=== PATIENT | female | born 1950 | race Hispanic/Latino ===

== ENCOUNTER → 2018-10-02 11:24 | Outpatient (CLI) | payer MEDICARE, MEDICAID, SELFPAY ==
--- NOTE | 2018-10-02 | DI.RAD.S_ITS ---
PROCEDURE: XR CHEST 2V INDICATIONS: Cough>10days, bibasilar cackles TECHNIQUE: 2 views of the chest were acquired. COMPARISON: None. FINDINGS: Surgical changes and devices: None. Lungs and pleura: No pleural effusions or pneumothorax. Lungs are clear. Mediastinum: Mediastinal contours are normal. Heart size is normal. Bones and chest wall: No suspicious bony abnormalities. Soft tissues appear unremarkable. IMPRESSION: Mildly reduced inspiratory volume, otherwise normal for age, source of current symptoms is not seen. Dictated by: Hiram Duran M.D. on 10/02/2018 at 13:35 Approved by: Hiram Duran M.D. on 10/02/2018 at 13:36
== END ==
PROVIDERS: PCP Nurse Practitioner Family; Visit Provider Nurse Practitioner Family
DX: R05 Cough (principal); R09.89 Other specified symptoms and signs involving the circulatory and respiratory systems
CPT/HCPCS: 71046

== ENCOUNTER → 2018-10-19 11:48 | Outpatient (CLI) | payer MEDICARE, MEDICAID, SELFPAY ==
--- NOTE | 2018-10-19 | DI.RAD.S_ITS ---
PROCEDURE: XR CHEST 2V INDICATIONS: PERSISTANT COUGH TECHNIQUE: 2 views of the chest were acquired. COMPARISON: [facility], CR, XR CHEST 2V, 10/02/2018, 11:29. FINDINGS: Surgical changes and devices: None. Lungs and pleura: No pleural effusions or pneumothorax. Lungs are clear considering reduced inspiratory volume. Mediastinum: Mediastinal contours are normal. Heart size is normal. Bones and chest wall: No suspicious bony abnormalities. Soft tissues appear unremarkable. IMPRESSION: Mildly reduced inspiratory volume, heart size at the upper limits of normal when this is taken into account. Dictated by: Hiram Duran M.D. on 10/19/2018 at 12:51 Approved by: Hiram Duran M.D. on 10/19/2018 at 12:52
== END ==
PROVIDERS: PCP Nurse Practitioner Family; Visit Provider Nurse Practitioner Family
DX: R05 Cough (principal)
CPT/HCPCS: 71046

== ENCOUNTER → 2018-12-15 12:11 | Outpatient (CLI) | payer MEDICARE, MEDICAID, SELFPAY ==
--- NOTE | 2018-12-15 | DI.US.S_ITS ---
PROCEDURE: US CAROTID DOPPLER BI INDICATIONS: DECREASED CAROTID PULSE TECHNIQUE: Color and pulse Doppler interrogation was performed of both carotid systems, with image documentation and velocity measurements. COMPARISON: None. FINDINGS: Stenosis calculations are based on SRU (Society of Radiologists in Ultrasound) criteria. Right side: Brachial blood pressure: 133/78 mm Hg. Common carotid artery peak systolic velocity: 32 cm/sec. Internal carotid artery peak systolic velocity: 46 cm/sec. Internal carotid artery end diastolic velocity: 19 cm/sec. External carotid artery peak systolic velocity: 149 cm/sec. ICA/CCA peak systolic ratio: 1.4. Denson scale imaging description: Mild scattered plaque. Percent internal carotid artery stenosis: Less than 50%. Vertebral artery: Not visualized. Left side: Brachial blood pressure: 122/73 mm Hg. Common carotid artery peak systolic velocity: 55 cm/sec. Internal carotid artery peak systolic velocity: 49 cm/sec. Internal carotid artery end diastolic velocity: 19 cm/sec. External carotid artery peak systolic velocity: 125 cm/sec. ICA/CCA peak systolic ratio: 0.9. Denson scale imaging description: Mild scattered plaque. Percent internal carotid artery stenosis: Less than 50%. Vertebral artery: Flow direction is antegrade. IMPRESSION: Stable less than 50% bilateral internal carotid artery stenosis. Dictated by: Abebe Atwood [facility] Interpreted: Quincy Mcdonald MD on 12/15/2018 at 14:29 Approved by: Quincy Mcdonald M.D. on 12/15/2018 at 17:17
== END ==
PROVIDERS: PCP Nurse Practitioner Family; Visit Provider Nurse Practitioner Family
DX: R09.89 Other specified symptoms and signs involving the circulatory and respiratory systems (principal); I65.23 Occlusion and stenosis of bilateral carotid arteries
CPT/HCPCS: 93880

== ENCOUNTER → 2018-12-19 09:33 | Outpatient (CLI) | payer MEDICARE, MEDICAID, SELFPAY ==
--- NOTE | 2018-12-19 15:46 | DIET.PN ---
Addendum entered by Amita Moise 12/20/18 12:12: Pt lives w/grown daughter who works horse race timer. Daughter tries help with managing diet and preps meals on weekends for pt to re-heat during weekdays. Usual Diet: Brkfst- 1 egg, Paul bread (all whole grain) w/butter or jam and tea w/splenda Lunch (often at [facility]) yesterday had 1 cup oatmeal - plain, coffee w/splends Dinner- Meat and vegs that trinh has prepped (often chicken). Last night had giles and tomato salad w/lite dressing, tuna w/[place], water After further discussion, pt started to recall other foods she often snacks on: a large banana, cookie at [employer], chips while watching football and drinks sugared Dr. Camacho at [facility]. All foods prepped w/out salt. Trying to cut portion of rice - can't change from white to brown. States she's been trying to lose weight and knows this will help w/bg control. Exercise: (difficult r/t knee replacement and need for another replaced) Walks to [facility] 3X/wk, bowls. Dx: DM2 w/complications, CKD3, HTN- med controlled. Hx: lactose intolerance per pt Labs: (11/23) A1C 7.3 eGFR 42 Mat Gauger 1.25 BG pt record FBG 111 today after dinner yesterday 133 Assessment: Fair knowledge of carb sources and portion control from previous education; has not implemented knowledge but does come with folder and prepared to keep meticulous records. Pt appears motivated to make lifestyles changes again. REcently started monitoring bg twice daily - AM fbg and post prandial bg after dinner. Admits the after dinner bg is difficult to remember as she tires and tends to fall asleep. Intervention: Suggested may try checking bg before dinner if after dinner proves to be ineffective. Provided education/review of carb foods, portions and consuming consistent carb through day. Provided feedback on current diet choices w/suggestions for substitutions - strongly encouraging to DC soda and either substitute w/diet soda or water or other non-sugar sweetened beverage. Gave non nutritive sweetener options that are considered safe, as daughter had discouraged intake of apartame. These include stevia/rebiana and erthrotol. Plan Keep food and bg record. Find better substitute for sodas F/U 2 weeks Original Note: Met for an intitial MNT for DM ed. Had ed when first diagnosed many years ago, then moved and hasn't continued any contact with dietitian. Stopped monitoring bg during this time, but states she's ready to re-start to take better care of herself.
== END ==
PROVIDERS: PCP Nurse Practitioner Family; Visit Provider Nurse Practitioner Family
DX: E11.21 Type 2 diabetes mellitus with diabetic nephropathy (principal); N18.3 Chronic kidney disease, stage 3 (moderate); I10 Essential (primary) hypertension
CPT/HCPCS: 97802

== ENCOUNTER → 2019-01-09 13:50 | Outpatient (CLI) | payer MEDICARE, MEDICAID, SELFPAY ==
--- NOTE | 2019-01-09 15:04 | DIET.PN ---
Met for first f/u consultation. Annie has a lot of questions and questions from her daughter. Daughter tries to help with portioning foods and also does a lot of the cooking. Per pt, saturnino cooks a lot of pasta and then scolds pt for taking too much. Per food record, eats a lot of spam. loves spam and white rice. Did Dc sodas. DX: DM2 w/complications Blood glucose per pt records: FBG 99-121, with one at 134 before dinner: 115-136 States unable to check after meals r/t medications; bedtime; or just forgets. Assessment: Diet appears improved, but sometimes very small in volume. Has kept carbs to <30g/meal. Dinner meal has been very low in carb. Intervention: Answered many questions: clarified types of carb - simple vs complex, clarified amount of sodium recommended and gave guidelines for saturnino to use with cooking (such as with soup). Suggested to have alternate food available when saturnino makes pasta meals, as she can't get enough to eat when limiting carbs Plan: continue food record for her own feedback (I don't believe insurance will pay for any more consultations this year) Suggest have on hand: cooked chicken or shrimp, HB eggs, etc for good sources of protein Fres vegs - non-starchy and unsalted nuts (T. portions) Include protein in each meal. Saturnino may call or email if she has further questions.
== END ==
PROVIDERS: PCP Nurse Practitioner Family; Visit Provider Nurse Practitioner Family
DX: E11.9 Type 2 diabetes mellitus without complications (principal)
CPT/HCPCS: 97803

== ENCOUNTER 2020-01-31 07:51 | Observation (INO) | payer MEDICARE, MEDICAID, SELFPAY ==
[2020-01-31] VITALS (7 sets, daily range): BP systolic 121–150; BP diastolic 58–67; PULSE 70–93; RESP 16–26; TEMP 37.2–39.3; O2SAT 94–98; BMI 30.2
--- NOTE | 2020-01-31 08:06 | ED_ITS ---
HPI - Weakness General Chief complaint: Shortness of Breath/Dyspnea Stated complaint: weakness Time Seen by Provider: 01/31/20 07:56 History of Present Illness HPI Narrative: The patient is a 69-year-old female who was transported to the emergency department by EMS after being called for a lift assist. The patient is being treated with Tamiflu because she has a cough that has been productive of thick green sputum. Her daughter was diagnosed to have influenza and she is living with her daughter. The patient has developed diarrhea and was trying to get out of bed to go to the bathroom when she was so weak and tired that she collapsed to the floor. She did not fall or strike her head. She does not have any back pain neck pain or head ache. She did not pass out. She denies any palpitations or racing of her heart as well as any chest pain. She has had some mild shortness of breath. She has had nausea but no vomiting. Her stool has not been black or tarry. She denies any urinary symptoms. She has had no fever chills or sweats. She denies having a stroke heart attack, COPD. She has never smoked or does not drink alcohol. Related Data Home Medications Medication Instructions Recorded Confirmed pravastatin [Pravachol] 40 mg PO QPM #0 02/04/10 01/31/20 amlodipine 5 mg PO DAILY 01/31/20 01/31/20 aspirin 81 mg PO DAILY 01/31/20 01/31/20 calcium carbonate [Calcium 500] 1,500 mg PO DAILY 01/31/20 01/31/20 irbesartan 75 mg PO DAILY 01/31/20 01/31/20 ketoconazole 1 applic TOPICAL BID 01/31/20 01/31/20 omeprazole 20 mg PO DAILY 01/31/20 01/31/20 oseltamivir 75 mg PO DAILY 01/31/20 01/31/20 Allergies Allergy/AdvReac Type Severity Reaction Status Date / Time No Known Drug Allergies Allergy Verified 01/31/20 08:07 Review of Systems Review of Systems Narrative: Review of systems were all negative except for those mentioned in history of present illness. Patient History Medical History (Updated 01/31/20 @ 17:09 by Shane Preciado DO) Diabetes (Acute) HLD (hyperlipidemia) (Acute) HTN (hypertension) (Acute) Social History household members: children Smoking Status: Never smoker alcohol intake: never Exam Narrative Exam Narrative: PHYSICAL EXAM: CONSTITUTIONAL: Awake, Alert, Oriented, Coherent, Cooperative in NAD. Does not appear toxic or ill. His generalized weak and needs assistance to sit up but is able to settle. HEAD: AT/NC EENT: PERRL, FROM of eyes, no discharge, no nystagmus No epistaxis or nasal drainage Oral mucosa is moist and pink, posterior pharynx is without erythema or exudate. NECK: Supple, no obvious JVD, Trachea is midline without stridor, no palpable LN SPINE: No gross deformity, no palpable tenderness of the cervical, thoracic, lumbar or sacral spine. No CVA tenderness. THORAX: No deformity, retractions, chest wall tenderness, LUNGS: Decreased breath sounds bilaterally that are clear and symmetrical. No wheezes or rhonchi appreciated. HEART: Normal heart tones, regular rhythm and rate without murmur. ABDOMEN: Soft, non-tender, normal bowel sounds without guarding, rebound, rigidity or palpable mass EXTREMITIES: No edema, cyanosis, deformity or tenderness. The SKIN: No rash, bruising, petechiae or purpura. NEURO: Awake, alert, oriented, conversive, cranial nerves II-XII are symmetrical and normal, moves all 4 extremities. Generalized weakness. Initial Vital Signs Initial Vital Signs: Vital Signs Temperature 100.1 F H 01/31/20 08:07 Pulse Rate 89 01/31/20 08:07 Respiratory Rate 18 01/31/20 08:07 Blood Pressure 127/58 L 01/31/20 08:07 Pulse Oximetry 96 01/31/20 08:07 Course Course Course Narrative: 11:33 the patient is unable to walk on her own for very far were when tested. Will call the hospitalist to admit the patient observation status. 11:[address] Preciado. He wants us to administer more fluid and road test the patient to see if she is able to ambulate and call him back. Orders Ordered: Acetaminophen (Tylenol) 650 mg PO Q6HR PRN PRN Reason: Fever/Mild Pain (1-3) Amlodipine Besylate (Norvasc) 5 mg PO DAILY [facility] Aspirin (Aspirin Ec) 81 mg PO DAILY [facility] Calcium Carbonate (Tums) 1,500 mg PO DAILY [facility] Dextrose (D50w) 25 gm IV PRN PRN PRN Reason: Hypoglycemia Enoxaparin Sodium (Lovenox) 40 mg SUBCUT DAILY [facility] Sodium Chloride (Normal Saline 0.9%) 1,000 mls @ 50 mls/hr IV CONT [facility] Last Admin: 01/31/20 20:23 Dose: 50 mls/hr Documented by: DANIEL Ceftriaxone Sodium/Dextrose (Rocephin) 1 gm in 50 mls @ 100 mls/hr IV Q24H LILLIE Stop: 02/03/20 20:14 Last Infusion: 02/01/20 00:54 Dose: 0 mls/hr Documented by: Admin: 01/31/20 20:45 Dose: 100 mls/hr Documented by: DANIEL Insulin Aspart (Novolog Flexpen) 0 unit SUBCUT ACHS [facility]; Protocol Last Admin: 01/31/20 20:45 Dose: Not Given Documented by: DANIEL Irbesartan (Avapro) 75 mg PO DAILY [facility] Ketoconazole (Nizoral 2% Cream (15 Gm)) 1 applic TOP BID [facility] Last Admin: 01/31/20 20:22 Dose: Not Given Documented by: DANIEL Ondansetron HCl (Zofran) 4 mg IV Q8HR PRN PRN Reason: Nausea And Vomiting Oseltamivir Phosphate (Tamiflu) 75 mg PO DAILY [facility] Pantoprazole Sodium (Protonix) 20 mg PO 0600 [facility] Last Admin: 02/01/20 05:56 Dose: 20 mg Documented by: ERICA Potassium Chloride (Klor-Con M20) 40 meq PO NOW ONE Stop: 02/01/20 07:47 Pravastatin Sodium (Pravachol) 40 mg PO QPM [facility] Discontinued Medications Acetaminophen (Tylenol) 650 mg PO NOW ONE Stop: 01/31/20 14:22 Last Admin: 01/31/20 14:33 Dose: 650 mg Documented by: PETER Sodium Chloride (Normal Saline 0.9%) 1,000 mls @ 1,000 mls/hr IV BOLUS ONE Stop: 01/31/20 09:09 Last Infusion: 01/31/20 09:59 Dose: 0 mls/hr Documented by: Admin: 01/31/20 08:46 Dose: 1,000 mls/hr Documented by: SCANAPO Sodium Chloride (Normal Saline 0.9%) 1,000 mls @ 1,000 mls/hr IV BOLUS ONE Stop: 01/31/20 12:45 Last Infusion: 01/31/20 14:40 Dose: 1,000 mls/hr Documented by: Admin: 01/31/20 12:30 Dose: 1,000 mls/hr Documented by: PETER Ceftriaxone Sodium/Dextrose (Rocephin) 1 gm in 50 mls @ 100 mls/hr IV Q24H LILLIE Stop: 02/03/20 16:58 Last Admin: 01/31/20 21:11 Dose: Not Given Documented by: DANIEL Ondansetron HCl (Zofran) 4 mg IV NOW ONE Stop: 01/31/20 08:11 Last Admin: 01/31/20 08:46 Dose: 4 mg Documented by: VASQUEZ Vital Signs Vital signs: Vital Signs - 8 hr 01/31/20 08:07 01/31/20 09:30 01/31/20 11:10 Temperature 100.1 F H Pulse Rate 89 93 H 86 Respiratory Rate 18 16 26 H Blood Pressure 127/58 L Blood Pressure [Right Arm] 134/63 141/63 H Pulse Oximetry 96 98 96 MDM - Weakness Lab Data Result diagrams: 02/01/20 05:19 02/01/20 05:19 Labs: Lab Results 01/31/20 01/31/20 01/31/20 Range/Units 08:00 08:00 08:00 WBC 7.2 (4.5-11.0) X10^3/uL RBC 4.86 (4.0-5.2) X10^6/uL Hgb 13.3 (12.0-16.0) g/dL Hct 40.2 (36-46) % MCV 82.8 (80-100) fL MCH 27.3 (26-34) PG MCHC 32.9 (30-36) % RDW 14.2 (11.6-14.8) % Plt Count 210 (150-400) X10^3/uL Neut % (Auto) 89.2 H (50-75) % Lymph % (Auto) 3.5 L (25-40) % [place] % (Auto) 6.5 (3-14) % Eos % (Auto) 0.5 L (2-4) % Baso % (Auto) 0.3 (0-2) % Neut # (Auto) 6500 (1971-5774) /uL Lymph # (Auto) 300 L (6132-6332) /uL [place] # (Auto) 500 (0-900) /uL Eos # (Auto) 0 (0-450) /uL Baso # (Auto) 0 (0-100) /uL PT 12.1 (10.1-12.7) SECONDS INR 1.0 (0.9-1.3) APTT 28 (26.4-36.2) SECONDS Sodium (137-145) mmol/L Potassium (3.4-5.1) mmol/L Chloride (98-107) mmol/L Carbon Dioxide (22-32) mmol/L BUN (7-17) mg/dL Creatinine (0.52-1.04) mg/dL Estimated GFR (>60) mL/min BUN/Creatinine Ratio (6-22) Glucose (80-110) mg/dL Lactate (0.7-2.1) mmol/L Calcium (8.4-10.2) mg/dL Total Bilirubin (0.2-1.3) mg/dL AST (14-36) IU/L ALT (<35) IU/L Alkaline Phosphatase (38-126) U/L Total Creatine Kinase (30-135) U/L CK-MB (CK-2) (<2.37) ng/mL CK-MB (CK-2) Rel Index (1.5-5.0) % Troponin I (0.01-0.034) ng/mL NT-Pro-B Natriuret Pep (<125) pg/mL Total Protein (6.3-8.2) g/dL Albumin (3.5-5.0) g/dL Globulin (1.7-4.1) g/dL Albumin/Globulin Ratio (1.0-2.8) Lipase (23-300) U/L Procalcitonin < 0.05 (<0.5) ng/mL Urine RBC (0-5/HPF) Urine WBC (0-5/HPF) Ur Squamous Epith Cells (0-5/HPF) Urine Bacteria (None) Ur Culture Indicated? Influenza A (RT-PCR) (NEGATIVE) Influenza B (RT-PCR) (NEGATIVE) 01/31/20 01/31/20 01/31/20 Range/Units 08:00 08:00 08:00 WBC (4.5-11.0) X10^3/uL RBC (4.0-5.2) X10^6/uL Hgb (12.0-16.0) g/dL Hct (36-46) % MCV (80-100) fL MCH (26-34) PG MCHC (30-36) % RDW (11.6-14.8) % Plt Count (150-400) X10^3/uL Neut % (Auto) (50-75) % Lymph % (Auto) (25-40) % [place] % (Auto) (3-14) % Eos % (Auto) (2-4) % Baso % (Auto) (0-2) % Neut # (Auto) (9623-2142) /uL Lymph # (Auto) (7140-8061) /uL [place] # (Auto) (0-900) /uL Eos # (Auto) (0-450) /uL Baso # (Auto) (0-100) /uL PT (10.1-12.7) SECONDS INR (0.9-1.3) APTT (26.4-36.2) SECONDS Sodium 135 L (137-145) mmol/L Potassium 3.5 (3.4-5.1) mmol/L Chloride 102 (98-107) mmol/L Carbon Dioxide 20 L (22-32) mmol/L BUN 25 H (7-17) mg/dL Creatinine 0.93 (0.52-1.04) mg/dL Estimated GFR 59.6 L (>60) mL/min BUN/Creatinine Ratio 26.9 H (6-22) Glucose 206 H (80-110) mg/dL Lactate 3.6 H (0.7-2.1) mmol/L Calcium 9.3 (8.4-10.2) mg/dL Total Bilirubin 1.0 (0.2-1.3) mg/dL AST 43 H (14-36) IU/L ALT 31 (<35) IU/L Alkaline Phosphatase 113 (38-126) U/L Total Creatine Kinase (30-135) U/L CK-MB (CK-2) (<2.37) ng/mL CK-MB (CK-2) Rel Index (1.5-5.0) % Troponin I (0.01-0.034) ng/mL NT-Pro-B Natriuret Pep (<125) pg/mL Total Protein 8.1 (6.3-8.2) g/dL Albumin 4.7 (3.5-5.0) g/dL Globulin 3.4 (1.7-4.1) g/dL Albumin/Globulin Ratio 1.4 (1.0-2.8) Lipase 187 (23-300) U/L Procalcitonin (<0.5) ng/mL Urine RBC (0-5/HPF) Urine WBC (0-5/HPF) Ur Squamous Epith Cells (0-5/HPF) Urine Bacteria (None) Ur Culture Indicated? Influenza A (RT-PCR) Flu a positive H (NEGATIVE) Influenza B (RT-PCR) Flu b negative (NEGATIVE) 01/31/20 01/31/20 01/31/20 Range/Units 08:00 08:00 09:59 WBC (4.5-11.0) X10^3/uL RBC (4.0-5.2) X10^6/uL Hgb (12.0-16.0) g/dL Hct (36-46) % MCV (80-100) fL MCH (26-34) PG MCHC (30-36) % RDW (11.6-14.8) % Plt Count (150-400) X10^3/uL Neut % (Auto) (50-75) % Lymph % (Auto) (25-40) % [place] % (Auto) (3-14) % Eos % (Auto) (2-4) % Baso % (Auto) (0-2) % Neut # (Auto) (6617-2986) /uL Lymph # (Auto) (6665-2965) /uL [place] # (Auto) (0-900) /uL Eos # (Auto) (0-450) /uL Baso # (Auto) (0-100) /uL PT (10.1-12.7) SECONDS INR (0.9-1.3) APTT (26.4-36.2) SECONDS Sodium (137-145) mmol/L Potassium (3.4-5.1) mmol/L Chloride (98-107) mmol/L Carbon Dioxide (22-32) mmol/L BUN (7-17) mg/dL Creatinine (0.52-1.04) mg/dL Estimated GFR (>60) mL/min BUN/Creatinine Ratio (6-22) Glucose (80-110) mg/dL Lactate (0.7-2.1) mmol/L Calcium (8.4-10.2) mg/dL Total Bilirubin (0.2-1.3) mg/dL AST (14-36) IU/L ALT (<35) IU/L Alkaline Phosphatase (38-126) U/L Total Creatine Kinase 232 H (30-135) U/L CK-MB (CK-2) 2.89 H (<2.37) ng/mL CK-MB (CK-2) Rel Index 1.2 L (1.5-5.0) % Troponin I < 0.012 (0.01-0.034) ng/mL NT-Pro-B Natriuret Pep 615 H (<125) pg/mL Total Protein (6.3-8.2) g/dL Albumin (3.5-5.0) g/dL Globulin (1.7-4.1) g/dL Albumin/Globulin Ratio (1.0-2.8) Lipase (23-300) U/L Procalcitonin (<0.5) ng/mL Urine RBC 5-10/hpf H (0-5/HPF) Urine WBC 1-5/hpf (0-5/HPF) Ur Squamous Epith Cells 1-5 /hpf (0-5/HPF) Urine Bacteria Many (>30) H (None) Ur Culture Indicated? Specimen cultured Influenza A (RT-PCR) (NEGATIVE) Influenza B (RT-PCR) (NEGATIVE) 01/31/20 Range/Units 10:35 WBC (4.5-11.0) X10^3/uL RBC (4.0-5.2) X10^6/uL Hgb (12.0-16.0) g/dL Hct (36-46) % MCV (80-100) fL MCH (26-34) PG MCHC (30-36) % RDW (11.6-14.8) % Plt Count (150-400) X10^3/uL Neut % (Auto) (50-75) % Lymph % (Auto) (25-40) % [place] % (Auto) (3-14) % Eos % (Auto) (2-4) % Baso % (Auto) (0-2) % Neut # (Auto) (1239-1510) /uL Lymph # (Auto) (9475-3377) /uL [place] # (Auto) (0-900) /uL Eos # (Auto) (0-450) /uL Baso # (Auto) (0-100) /uL PT (10.1-12.7) SECONDS INR (0.9-1.3) APTT (26.4-36.2) SECONDS Sodium (137-145) mmol/L Potassium (3.4-5.1) mmol/L Chloride (98-107) mmol/L Carbon Dioxide (22-32) mmol/L BUN (7-17) mg/dL Creatinine (0.52-1.04) mg/dL Estimated GFR (>60) mL/min BUN/Creatinine Ratio (6-22) Glucose (80-110) mg/dL Lactate 1.5 (0.7-2.1) mmol/L Calcium (8.4-10.2) mg/dL Total Bilirubin (0.2-1.3) mg/dL AST (14-36) IU/L ALT (<35) IU/L Alkaline Phosphatase (38-126) U/L Total Creatine Kinase (30-135) U/L CK-MB (CK-2) (<2.37) ng/mL CK-MB (CK-2) Rel Index (1.5-5.0) % Troponin I (0.01-0.034) ng/mL NT-Pro-B Natriuret Pep (<125) pg/mL Total Protein (6.3-8.2) g/dL Albumin (3.5-5.0) g/dL Globulin (1.7-4.1) g/dL Albumin/Globulin Ratio (1.0-2.8) Lipase (23-300) U/L Procalcitonin (<0.5) ng/mL Urine RBC (0-5/HPF) Urine WBC (0-5/HPF) Ur Squamous Epith Cells (0-5/HPF) Urine Bacteria (None) Ur Culture Indicated? Influenza A (RT-PCR) (NEGATIVE) Influenza B (RT-PCR) (NEGATIVE) Urine Dip Bedside Urine Glucose 100 mg/dl Bedside Urine Bilirubin - Negative Bedside Urine Ketone +/- 5 Urine Specific [place] 1.025 Bedside Urine Occult Blood ++ Bedside Urine pH 6.0 Bedside Urine Protein ++ 100 Bedside Urine Urobilinogen - Negative Bedside Urine Nitrite - Negative Bedside Urine Leukocytes ++ 125 Esterase ECG Data Attestation: I personally reviewed and interpreted this ECG as follows: Interpretation: The patient's EKG obtained on January 30 at 8:11 a.m.: 0 6 reveals a normal sinus rhythm with ventricular rate of 90. [place] is left. QTC is borderline at 450 milliseconds. The rest of the intervals are normal. The patient has baseline artifact. T-waves are flat in III and AVF as well as II. T-waves are inverted in V1. Q-wave is present in lead V1. The rest of the ST segments and T-waves are nonspecific with no acute diagnostic ST segment changes. There is no injury pattern. Discharge Plan Departure Patient Disposition: Admitted as Observation Clinical Impression: Influenza A, Acute UTI, Weakness Fatigue Qualifiers: Fatigue type: unspecified Qualified Code(s): R53.83 - Other fatigue Discharge Date/Time: 01/31/20 15:08 Referrals: Ladi Gandara ARNP [Primary Care Provider] - Admit Date/Time: 01/31/20 13:46 Admit Provider: Shane Preciado
--- NOTE | 2020-01-31 08:10 | DI.RAD.S_ITS ---
PROCEDURE: XR CHEST 1V INDICATIONS: suspected sepsis TECHNIQUE: One view of the chest was acquired. COMPARISON: [facility], CR, XR CHEST 2V, 10/19/2018, 12:01. FINDINGS: Surgical changes and devices: None. Lungs and pleura: Lungs are clear. No pleural effusions or pneumothorax. Mediastinum: Mediastinal contours appear normal. Heart size is enlarged. Bones and chest wall: No suspicious bony lesions. Overlying soft tissues appear unremarkable. IMPRESSION: No acute cardiopulmonary pathology. Dictated by: Maciej Hair M.D. on 01/31/2020 at 10:15 Approved by: Maciej Hair M.D. on 01/31/2020 at 10:15
[2020-01-31 08:20] LABS: Add Manual Diff / Slide Review NO; Basophils Absolute Auto 0 /uL (0-100); Basophils Percent Auto 0.3 % (0-2); Eosinophils Absolute Auto 0 /uL (0-450); Eosinophils Percent Auto 0.5 % (2-4); Hematocrit 40.2 % (36-46); Hemoglobin 13.3 g/dL (12.0-16.0); Lymphocytes Absolute Auto 300 /uL (1100-4500); Lymphocytes Percent Auto 3.5 % (25-40); Mean Corpuscular HGB Conc 32.9 % (30-36); Mean Corpuscular Hemoglobin 27.3 PG (26-34); Mean Corpuscular Volume 82.8 fL (80-100); Monocytes Absolute Auto 500 /uL (0-900); Monocytes Percent Auto 6.5 % (3-14); Neutrophils Absolute Auto 6500 /uL (1500-7000); Neutrophils Percent Auto 89.2 % (50-75); Platelet Count 210 X10^3/uL (150-400); Red Blood Cell Count 4.86 X10^6/uL (4.0-5.2); Red Cell Distribution Width 14.2 % (11.6-14.8); White Blood Cell Count 7.2 X10^3/uL (4.5-11.0)
[2020-01-31 08:21] LABS: Prothrombin Time 12.1 SECONDS (10.1-12.7)
[2020-01-31 08:24] LABS: PTT Partial Thromboplastin Tim 28 SECONDS (26.4-36.2)
[2020-01-31 08:29] LABS: Alanine Aminotransferase 31 IU/L (<35); Albumin 4.7 g/dL (3.5-5.0); Albumin Globulin Ratio 1.4 (1.0-2.8); Alkaline Phosphatase 113 U/L (38-126); Aspartate Aminotransferase 43 IU/L (14-36); BUN Creatinine Ratio 26.9 (6-22); Blood Urea Nitrogen 25 mg/dL (7-17); Calcium 9.3 mg/dL (8.4-10.2); Carbon Dioxide 20 mmol/L (22-32); Chloride 102 mmol/L (98-107); Estimated Glomerular Filt Rate 59.6 mL/min (>60); Globulin 3.4 g/dL (1.7-4.1); Glucose 206 mg/dL (80-110); HEMOLYSIS < 15 (0-50); Lactate (Lactic Acid) 3.6 mmol/L (0.7-2.1); Lipase 187 U/L (23-300); Potassium 3.5 mmol/L (3.4-5.1); Sodium 135 mmol/L (137-145); Total Protein 8.1 g/dL (6.3-8.2)
[2020-01-31] MEDS: ONDANSETRON 4 MG/2 ML INJ IV (08:46)
[2020-01-31] MEDS: SODIUM CHLORIDE 0.9% 1,000 ML 1000 ML IV ×2 (08:46→12:30)
[2020-01-31 08:47] LABS: Procalcitonin < 0.05 ng/mL (<0.5)
[2020-01-31 08:48] LABS: Influenza A - CEPHEID Flu A POSITIVE (NEGATIVE); Influenza B - CEPHEID Flu B NEGATIVE (NEGATIVE)
[2020-01-31 09:22] LABS: Creatine Kinase 232 U/L (30-135)
[2020-01-31 09:32] LABS: NT-proBNP (BNP-Adult 18+) 615 pg/mL (<125)
[2020-01-31 09:35] LABS: Troponin I < 0.012 ng/mL (0.01-0.034)
[2020-01-31 09:38] LABS: CKMB % Relative Index 1.2 % (1.5-5.0); Creatine Kinase MB 2.89 ng/mL (<2.37)
[2020-01-31 10:16] LABS: Reflexed Lactate in 2 Hours Y
[2020-01-31 10:31] LABS: RBC Urine 5-10/HPF (0-5/HPF)
[2020-01-31 10:32] LABS: Bacteria Urine Many (>30); Culture Indicated Urine Specimen Cultured; Squamous Epithelial Cell Urine 1-5 /HPF (0-5/HPF); WBC Urine 1-5/HPF (0-5/HPF)
[2020-01-31 10:54] LABS: Lactate 2HR (Lactic Acid Rflx) 1.5 mmol/L (0.7-2.1)
--- NOTE | 2020-01-31 11:21 | PC.NURSE ---
Patient was not able to get out of bed without assistance. once standing she could hardly pivot and couldnt take more than 2 steps.
--- NOTE | 2020-01-31 11:48 | PC.NURSE ---
Assumed care of pt. pt resting in bed. remains in cardiac monitoring. droplet precautions. +flu A. asking for water. given. IVF infusing. NAD.
[2020-01-31] MEDS: ACETAMINOPHEN 325 MG TABLET 650 MG PO (14:33)
--- NOTE | 2020-01-31 16:54 | PM.HP.1 ---
History of Present Illness History of Present Illness Date Patient Seen: 01/31/20 Time Patient Seen: 16:54 Chief complaint: weakness Narrative: Annie Henriquez is a 69-year-old female with past medical history of hypertension, hyperlipidemia, reported DM (not on current medications per med list) who was brought in by EMS after a fall at home. Starting yesterday, the patient began to feel weak and tired. She got up this morning and tried to ambulate but fell on the floor. 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 With her fall she did not hit her head, she takes aspirin but no blood thinners. She denies any back or neck pain at this time and she did not pass out. She did feel dizzy prior to the fall, but denies any palpitations, chest pain, shortness of breath prior to the fall. She denies any shortness of breath currently. She denies any nausea or vomiting. She has been urinating quite frequently but denies any dysuria, abdominal pain, or flank pain. She denies fevers or chills subjectively at home. She does have a productive cough of green sputum over the past 3 days. In the ED, patient had low-grade fever, but was febrile to 102.7 on the floor. She was mildly hypertensive, and mildly tachypneic, but not hypoxic and did not require supplemental oxygen. Patient attempted to ambulate, but was unable to due to weakness after 2 L of IVF. Initial CBC was unremarkable, admission glucose of 206, AST of 43, creatinine of 0.93, proBNP of 615, procalcitonin negative. UA with many urine bacteria, 1-5 WBC, 5-10 RBC, was sent for culture. Flu A testing was positive. CXR was negative for acute processes. Blood cultures were taken x2. Patient was admitted under observation status for influenza. Patient History Medical History (Updated 01/31/20 @ 17:09 by Shane Preciado DO) Diabetes (Acute) HLD (hyperlipidemia) (Acute) HTN (hypertension) (Acute) Family & Social History Social History: household members children Prior Living Arrangements House Safety & Behavioral: Feels Safe in Current Yes Environment Been Physically Hurt or No Threatened By a Person Suicidal Ideation Description None Suicide Plan Description No Plan Tobacco & Substance use: Smoking Status Never smoker alcohol intake never Substance Use Type does not use Meds Home Medications and Allergies Home Medications Medication Instructions Recorded Confirmed Type pravastatin [Pravachol] 40 mg PO QPM #0 02/04/10 01/31/20 History amlodipine 5 mg PO DAILY 01/31/20 01/31/20 History aspirin 81 mg PO DAILY 01/31/20 01/31/20 History calcium carbonate [Calcium 500] 1,500 mg PO DAILY 01/31/20 01/31/20 History irbesartan 75 mg PO DAILY 01/31/20 01/31/20 History ketoconazole 1 applic TOPICAL BID 01/31/20 01/31/20 History omeprazole 20 mg PO DAILY 01/31/20 01/31/20 History oseltamivir 75 mg PO DAILY 01/31/20 01/31/20 History Allergies Allergy/AdvReac Type Severity Reaction Status Date / Time No Known Drug Allergies Allergy Verified 01/31/20 08:07 Review of Systems Review of Systems Narrative: All other systems reviewed with the patient and are negative unless otherwise stated. Exam Vital Signs (past 8 hours): - 01/31/20 09:30 01/31/20 11:10 01/31/20 13:35 Temperature 100.0 F H Pulse Rate 93 H 86 86 Respiratory Rate 16 26 H 20 Blood Pressure Blood Pressure [Right Arm] 134/63 141/63 H 150/67 H Pulse Oximetry 98 96 97 01/31/20 14:33 01/31/20 15:00 Temperature 100.0 F H 102.7 F H Pulse Rate 89 Respiratory Rate 18 Blood Pressure 141/66 H Blood Pressure [Right Arm] Pulse Oximetry 96 Oxygen Delivery Method Room Air Narrative Exam Narrative: GENERAL APPEARANCE: Well developed, well nourished, in no acute distress. Saturating in the mid 90s on room air. SKIN: Inspection of the skin reveals no rashes, ulcerations or petechiae. HEENT: Normocephalic atraumatic, extraocular muscles are intact, oropharynx is clear and mucous membranes are dry, neck is supple without adenopathy NECK: Supple and symmetric. There was no thyroid enlargement, and no tenderness, or masses were felt. CHEST: Normal AP diameter and normal contour without any kyphoscoliosis. LUNGS: Mild bibasilar rales, no wheezing. Rales did improve with forced cough. CARDIOVASCULAR: There was a regular rate and rhythm without any murmurs, gallops, rubs. Peripheral pulses were 2+ and symmetric. ABDOMEN: Soft and nontender with normal bowel sounds. No ascites was noted. MUSCULOSKELETAL: There was no tenderness or effusions noted. Muscle strength and tone were normal. EXTREMITIES: No cyanosis, clubbing or edema. NEUROLOGIC: Alert and oriented x 3. Normal affect. Strength is +5/5 in the Upper Extremities and Lower Extremities Bilaterally. Sensation to touch was normal. Objective ECG Impression: Normal sinus rhythm, unremarkable EKG. No changes compared to previous Imaging Chest x-ray: My impression: No acute cardiopulmonary process Radiologist's impression: No acute cardiopulmonary process Labs Result Diagrams: 01/31/20 08:00 01/31/20 08:00 Labs: Laboratory Results - last 24 hr 01/31/20 01/31/20 01/31/20 08:00 08:00 08:00 WBC 7.2 RBC 4.86 Hgb 13.3 Hct 40.2 MCV 82.8 MCH 27.3 MCHC 32.9 RDW 14.2 Plt Count 210 Neut % (Auto) 89.2 H Lymph % (Auto) 3.5 L [place] % (Auto) 6.5 Eos % (Auto) 0.5 L Baso % (Auto) 0.3 Neut # (Auto) 6500 Lymph # (Auto) 300 L [place] # (Auto) 500 Eos # (Auto) 0 Baso # (Auto) 0 PT 12.1 INR 1.0 APTT 28 Sodium Potassium Chloride Carbon Dioxide BUN Creatinine Estimated GFR BUN/Creatinine Ratio Glucose Lactate Calcium Total Bilirubin AST ALT Alkaline Phosphatase Total Creatine Kinase CK-MB (CK-2) CK-MB (CK-2) Rel Index Troponin I NT-Pro-B Natriuret Pep Total Protein Albumin Globulin Albumin/Globulin Ratio Lipase Procalcitonin < 0.05 Urine RBC Urine WBC Ur Squamous Epith Cells Urine Bacteria Ur Culture Indicated? Influenza A (RT-PCR) Influenza B (RT-PCR) 01/31/20 01/31/20 01/31/20 08:00 08:00 08:00 WBC RBC Hgb Hct MCV MCH MCHC RDW Plt Count Neut % (Auto) Lymph % (Auto) [place] % (Auto) Eos % (Auto) Baso % (Auto) Neut # (Auto) Lymph # (Auto) [place] # (Auto) Eos # (Auto) Baso # (Auto) PT INR APTT Sodium 135 L Potassium 3.5 Chloride 102 Carbon Dioxide 20 L BUN 25 H Creatinine 0.93 Estimated GFR 59.6 L BUN/Creatinine Ratio 26.9 H Glucose 206 H Lactate 3.6 H Calcium 9.3 Total Bilirubin 1.0 AST 43 H ALT 31 Alkaline Phosphatase 113 Total Creatine Kinase CK-MB (CK-2) CK-MB (CK-2) Rel Index Troponin I NT-Pro-B Natriuret Pep Total Protein 8.1 Albumin 4.7 Globulin 3.4 Albumin/Globulin Ratio 1.4 Lipase 187 Procalcitonin Urine RBC Urine WBC Ur Squamous Epith Cells Urine Bacteria Ur Culture Indicated? Influenza A (RT-PCR) Flu a positive H Influenza B (RT-PCR) Flu b negative 01/31/20 01/31/20 01/31/20 08:00 08:00 09:59 WBC RBC Hgb Hct MCV MCH MCHC RDW Plt Count Neut % (Auto) Lymph % (Auto) [place] % (Auto) Eos % (Auto) Baso % (Auto) Neut # (Auto) Lymph # (Auto) [place] # (Auto) Eos # (Auto) Baso # (Auto) PT INR APTT Sodium Potassium Chloride Carbon Dioxide BUN Creatinine Estimated GFR BUN/Creatinine Ratio Glucose Lactate Calcium Total Bilirubin AST ALT Alkaline Phosphatase Total Creatine Kinase 232 H CK-MB (CK-2) 2.89 H CK-MB (CK-2) Rel Index 1.2 L Troponin I < 0.012 NT-Pro-B Natriuret Pep 615 H Total Protein Albumin Globulin Albumin/Globulin Ratio Lipase Procalcitonin Urine RBC 5-10/hpf H Urine WBC 1-5/hpf Ur Squamous Epith Cells 1-5 /hpf Urine Bacteria Many (>30) H Ur Culture Indicated? Specimen cultured Influenza A (RT-PCR) Influenza B (RT-PCR) 01/31/20 10:35 WBC RBC Hgb Hct MCV MCH MCHC RDW Plt Count Neut % (Auto) Lymph % (Auto) [place] % (Auto) Eos % (Auto) Baso % (Auto) Neut # (Auto) Lymph # (Auto) [place] # (Auto) Eos # (Auto) Baso # (Auto) PT INR APTT Sodium Potassium Chloride Carbon Dioxide BUN Creatinine Estimated GFR BUN/Creatinine Ratio Glucose Lactate 1.5 Calcium Total Bilirubin AST ALT Alkaline Phosphatase Total Creatine Kinase CK-MB (CK-2) CK-MB (CK-2) Rel Index Troponin I NT-Pro-B Natriuret Pep Total Protein Albumin Globulin Albumin/Globulin Ratio Lipase Procalcitonin Urine RBC Urine WBC Ur Squamous Epith Cells Urine Bacteria Ur Culture Indicated? Influenza A (RT-PCR) Influenza B (RT-PCR) Assessment & Plan Assessment & Plan narrative: Annie Henriquez is a 69-year-old female with past medical history of hypertension, hyperlipidemia, reported DM (not on current medications per med list) who was brought in by EMS after a fall at home, this is likely due to weakness in the setting influenza a. 1. Influenza a, acute, present on admission -continue supportive care with Tylenol for fever suppression, IV fluids for rehydration given diarrhea, patient received 2 L IV fluids in the ED and she did have some bibasilar rales will back off to 50 cc/hour at this time. -continue Tamiflu 75 mg daily -droplet precautions 2. Diabetes, unknown type but likely type 2, not on long-term insulin use -repeat A1c, patient's current medication list does not list any antihyperglycemics. -patient's admission glucose was 206, continue fingersticks a.c. HS with low-dose sliding scales coverage and adjustment as necessary. 3. Hypertension, chronic, present on admission -continue home irbesartan and amlodipine 4. Hyperlipidemia, chronic -continue home pravastatin 5. Acute dehydration, present on admission -continue IV fluids, this is likely in the setting of influenza a. 6. Acute cystitis, present on admission -patient with positive UA, sent for cultures -will treat with ceftriaxone currently. Patient only requires 3 days of therapy as this appears uncomplicated. Dispo: Admitted under inpatient status as her stay is not expected to exceed 2 midnights. Code: Full, surrogate decision makers the patient's daughter. DVT: Lovenox daily
[2020-01-31] MEDS: SODIUM CHLORIDE 0.9% 1,000 ML 50 ML IV (20:23)
[2020-01-31] MEDS: CEFTRIAXONE 1 GM/50 ML FROZ.PIGGY IV (20:45)
[2020-02-01] VITALS: BP 150/64; PULSE 81; RESP 20; TEMP 38.3; O2SAT 98
[2020-02-01 05:15] VITALS: BP 113/79; PULSE 64; RESP 20; TEMP 36.9; O2SAT 97
[2020-02-01 05:38] LABS: Add Manual Diff / Slide Review NO; Basophils Absolute Auto 0 /uL (0-100); Basophils Percent Auto 0.2 % (0-2); Eosinophils Absolute Auto 0 /uL (0-450); Hematocrit 35.5 % (36-46); Hemoglobin 11.6 g/dL (12.0-16.0); Lymphocytes Absolute Auto 500 /uL (1100-4500); Lymphocytes Percent Auto 10.3 % (25-40); Mean Corpuscular HGB Conc 32.7 % (30-36); Mean Corpuscular Hemoglobin 27.1 PG (26-34); Mean Corpuscular Volume 82.8 fL (80-100); Monocytes Absolute Auto 500 /uL (0-900); Monocytes Percent Auto 10.8 % (3-14); Neutrophils Absolute Auto 3700 /uL (1500-7000); Neutrophils Percent Auto 78.7 % (50-75); Platelet Count 171 X10^3/uL (150-400); Red Blood Cell Count 4.29 X10^6/uL (4.0-5.2); Red Cell Distribution Width 14.2 % (11.6-14.8); White Blood Cell Count 4.7 X10^3/uL (4.5-11.0)
[2020-02-01 05:46] LABS: Alanine Aminotransferase 38 IU/L (<35); Albumin 3.3 g/dL (3.5-5.0); Albumin Globulin Ratio 1.1 (1.0-2.8); Alkaline Phosphatase 73 U/L (38-126); Aspartate Aminotransferase 84 IU/L (14-36); BUN Creatinine Ratio 28.6 (6-22); Bilirubin Total 0.4 mg/dL (0.2-1.3); Bilirubin Unconjugated 0.4 mg/dL (0.0-1.1); Blood Urea Nitrogen 20 mg/dL (7-17); Calcium 8.4 mg/dL (8.4-10.2); Carbon Dioxide 25 mmol/L (22-32); Chloride 106 mmol/L (98-107); Estimated Glomerular Filt Rate > 60.0 mL/min (>60); Globulin 3.1 g/dL (1.7-4.1); Glucose 101 mg/dL (80-110); HEMOLYSIS < 15 (0-50); Potassium 3.2 mmol/L (3.4-5.1); Sodium 136 mmol/L (137-145); Total Protein 6.4 g/dL (6.3-8.2)
[2020-02-01] MEDS: PANTOPRAZOLE 20 MG TABLET PO (05:56)
[2020-02-01 05:59] LABS: Hemoglobin A1C% w Est Avg Glu 6.5 % (4.0-6.0)
[2020-02-01 06:47] LABS: TSH w/ Reflex to FT4 0.44 uIU/mL (0.47-4.68)
[2020-02-01 07:30] VITALS: BP 113/61; PULSE 63; RESP 18; TEMP 37.1; O2SAT 98
[2020-02-01 07:56] LABS: Free T4, Direct Thyroxine 1.36 ng/dL (0.78-2.19)
[2020-02-01] MEDS: POTASSIUM CHLORIDE 20 MEQ TAB 40 MEQ PO (08:57)
[2020-02-01] MEDS: IRBESARTAN 150 MG TABLET 75 MG PO (08:58)
[2020-02-01] MEDS: AMLODIPINE 5 MG TABLET PO (08:58)
[2020-02-01] MEDS: ASPIRIN EC 81 MG TABLET PO (08:58)
[2020-02-01] MEDS: OSELTAMIVIR 75 MG CAPSULE PO (08:58)
[2020-02-01] MEDS: ENOXAPARIN 40 MG/0.4 ML SYRINGE SUBCUT (08:58)
[2020-02-01] MEDS: CALCIUM CARBONATE 500 MG TAB 1500 MG PO (08:58)
[2020-02-01] MEDS: KETOCONAZOLE 2% CREAM 15 GM 1 APPLIC TOP (08:59)
--- NOTE | 2020-02-01 11:31 | PT.IIE ---
Medical History (Last Updated 01/31/20 @ 17:09 by Shane Preciado DO) Diabetes (Acute) HLD (hyperlipidemia) (Acute) HTN (hypertension) (Acute) Physical Therapy Inpatient Evaluation/Re-Eval M1 PT/OT-IP Prior Functional Status Start: 02/01/20 08:33 Freq: NEEDED Status: Active Protocol: Document 02/01/20 11:00 HH (Rec: 02/01/20 11:31 [id number]) Medical Review Prior Functional Status Medical History Reviewed Yes Communication no deficits noted. able to make needs known Mobility and Gait independent with mobility at home and community. Pt uses SPC for long walk only. Denies any hx of fall. Activities of Daily Living and IADL's independent with ADLs and IADLs. Able to cook and clean by herself. She also drives. Social History Household Members children Living Arrangements House Number of Floors (Floors) Two Floors Number of Stairs To Enter/Railing? 7 steps +landing + 7 steps to front entranc on 2nd level with L rail and porch on R side to support as needed. Pt stated she usually hold on to the R porch first then uses L rail. Pt lives on 2nd level with kitchen, bedroom and bathroom access pt's dtr lives on 1st floor. Home Environment Standard Height Toilet,Tub/ Shower Home Equipment Front Wheel Walker,Straight Cane,Raised Toilet Seat w/ Armrests,Tub Transfer Bench, Hand Held Shower Employment Status Retired Additional Social History Comment Pt lives with her dtr who works chute operator in [place]. She states her dtr usually works 12 hours shift and is not home often, but pt does not need her help since she is very independent. Pt stated her dtr got sick first and wasnt able to pick her up after a GLF yesterday. M2 PT-IP Current Condition Start: 02/01/20 08:33 Freq: NEEDED Status: Active Protocol: Document 02/01/20 11:00 (Rec: 02/01/20 11:31 [id number]) Physical Therapy Current Condition Current Condition Evaluation Date 02/01/20 Treatment Diagnosis Influenza A, GLF, weakness, difficulty in walking Onset Date 01/31/20 Precautions Other Precautions Droplet precaution Weight Bearing Status Weight Bearing Status Full Weight Bearing M3 PT-IP Subjective Start: 02/01/20 08:33 Freq: NEEDED Status: Active Protocol: Document 02/01/20 11:00 HH (Rec: 02/01/20 11:31 [id number]) Subjective Physical Therapy Visit Type Type Initial Evaluation Visit Start Time 10:20 Visit Stop Time 10:49 Total Visit Minutes 29 Notes Per RN Michael, pt just weaned off from O2 therapy via NC. She has not been OOB yet. Number of CIGARETTE PACKER Visits 0 Physical Therapy Visit Comments Patient Comments Im feeling better today. I was very weak yesterday. Patient Goals To get better and return home. Therapy Pain Assessment Pain Present Pain Present Denied Pain M4 PT-IP Mobility and Gait Start: 02/01/20 08:33 Freq: NEEDED Status: Active Protocol: Document 02/01/20 11:00 (Rec: 02/01/20 11:31 [id number]) PT-Bed Mobility Assessment Supine to Sit Supine to Sit Contact Guard Assistance,Head of Bed Elevated Scooting Scooting to Edge of Bed Contact Guard Assistance PT-Transfer Assessment Sit to and From Stand Sit to and from Stand Contact Guard Assistance,Use of Upper Extremities Equipment Transfer Assistive Device Gait Belt,Front Wheeled Walker Orthotic/Prosthetic Devices or Brace: No Transfers Transfer Destination Bed,Chair,Toilet Transfer Technique amb with FWW Transfer Ability Level of Assist Contact Guard Assistance,Use of Upper Extremities Comments Mobility Comments Pt was in elevated head of bed upon PT arrival. SpO2 in room air >94%. Pt agreeable to mobilize with PT but stating she still feels weak. Pt completed supine to long sit from elevated HOB d/t malfunction of her bed. But pt did need increased time to use R bed rail for pull to sit . She then pivot herself but needed time for lifting BLEs. Pt reports she's feeling weak to lift both legs. Pt then slowly scooted towards EOB. She then requested to use bathroom. Pt got up with CGA and FWW but pt accidentally voided when she passed through bathroom door. She then transferred to toilet safely and was able to did pericare by standing up multiple times with LUE support on grab bar. This PT assisted pt to change gowns and socks. She then amb around her room after with CGA and FWW. Pt did not show LOB and discomfort but did c/o fatigue. Pt then walked back to bedside chair and she was able to descend safely with proper hand placements on armrests. Call light placed within reach. BP at 150/87. SpO2 at 95% in room air. Gait Assessment Gait Gait Assistance Required: Contact Guard Assist Distance (Feet) 15 Able to Maintain Weight Bearing Status Yes During Gait Assistive Devices Assistive Device Gait Belt,Front Wheeled Walker Orthotic/Prosthetic Devices or Brace: No Gait Deviations General Gait Pattern Decreased Stride Length, Decreased Feet Clearance Factors Limiting Gait Function Factors Limiting Gait Function Decreased Activity Tolerance, Decreased Strength,Pain,Poor Balance,Respiratory Distress Comments Gait Comments see mobility comments Stair Climbing Assessment Comments Stair Climbing Comments not asssessed yet d/t weakness PT-Balance Assessment Sitting Balance and Reactions Static Sitting Balance Ability Normal Dynamic Sitting Balance Ability Normal Standing Balance and Reactions Static Standing Balance Ability Normal Dynamic Standing Balance Ability Good Device Used FWW M5 PT-IP Objective Assessments Start: 02/01/20 08:33 Freq: NEEDED Status: Active Protocol: Document 02/01/20 11:00 (Rec: 02/01/20 11:31 [id number]) Orientation Orientation/Cognition Level of Alertness Alert Orientation Name,Age,Birthday,Month,Date, Year,Day of Week,Place, Situation Language Function Ability No Deficits Noted Safety Awareness Understands Safety Issues Memory Description No Deficits Noted Gross Range of Motion Upper Extremity ROM Assessment Within Functional Limits Lower Extremity ROM Assessment Within Functional Limits Strength Upper Extremity Strength Assessment Within Functional Limits Lower Extremity Strength Assessment Within Functional Limits Muscle Tone Muscle Tone WNL Yes M6 PT-IP Treatment Start: 02/01/20 08:33 Freq: NEEDED Status: Active Protocol: Document 02/01/20 11:00 (Rec: 02/01/20 11:31 [id number]) Physical Therapy Treatment Education Education Provided Safety M7 PT-IP Assessment and Plan Start: 02/01/20 08:33 Freq: NEEDED Status: Active Protocol: Document 02/01/20 11:00 (Rec: 02/01/20 11:31 [id number]) PT Summary Assessment and Plan Potential Rehabilitation Potential Excellent Status of Condition at Evaluation Evolving Summary Impairments Strength,Balance,Bed Mobility, Transfers,Gait,Activity Tolerance Assessment Summary This is a low complexity evaluation for this 69yo female s/p GLF d/t weakness. Pt was dx with influenza A who presents SOB, wheezing upon exertion and generalized weakness upon assessment. Pt did fairly well for mobility assessment but presents with significant weakness. She mobilize slowly with CGA FWW d /t weakness but was very safe without LOB. Her BP and SpO2 both remained stable as well. Expect pt to be d/c home or possibly with home health (d/t the fact that pt's dtr works long hours) depends on progress once she is medically stable. Goals Bed Mobility Goal Standby Assistance Transfer Goal Standby Assistance,Front Wheeled Walker Gait Goal Standby Assistance,Front Wheel Walker Gait Distance 200 Other Goals 14 steps with L rail Days to Meet Goals 0 Frequency of Treatment Frequency Of Treatment Once a Day Treatment Plan Physical Therapy Treatment Plan Bed Mobility Training,Transfer Training,Gait Training, Therapeutic Exercise,Balance Retraining,Discharge Planning Other Recommendations and Next Treatment check VSS Focus stair climbing if possible Recommendations To Nursing Amount of Assist Needed 1 Person Assist Discharge Recommendations PT Discharge Recommendations Home with Assistance,Home Health Transportation Needs at Discharge Private Vehicle
--- NOTE | 2020-02-01 13:08 | PC.NURSE ---
PATIENT HAS EXP WHEEZES BL LOWER LOBES AND RIGHT MID LOBE. DENIES SOB. SAT 95% ON RA. DENIES PAIN. HAS AMB TO BR WITH PHYSICAL THERAPY. CONT/INCONT. WEARS BRIEF. STATES OVERALL SHE IS STARTING TO FEEL BETTER BUT STILL WEAK.
[2020-02-01 13:54] VITALS: BP 128/68; PULSE 68; RESP 18; TEMP 36.6; O2SAT 99
--- NOTE | 2020-02-01 14:45 | PM.PN.1 ---
Subjective Subjective Date Patient Seen: 02/01/20 Time Patient Seen: 14:46 Interval history: Annie Henriquez is a 69-year-old female with past medical history of hypertension, hyperlipidemia, reported DM (not on current medications per med list) who was brought in by EMS after a fall at home. She was admitted under observation status for influenza A. She was just titrated off of oxygen this morning, and continues to feel quite weak, somewhat improved today. She continues to have some diarrhea but is tolerating p.o. intake at this time. Her hemoglobin did fall from 13-11.6 today, this is likely in response to fluid resuscitation. Fluids will be held. Patient was also hypokalemic and was given or repletion. Her LFTs also jumped slightly. Exam Vital Signs (past 8 hours): - 02/01/20 07:30 02/01/20 13:54 Temperature 98.8 F 97.9 F Pulse Rate 63 68 Respiratory Rate 18 18 Blood Pressure 113/61 128/68 Pulse Oximetry 98 99 Oxygen Delivery Method Nasal Cannula Oxygen Flow Rate 0 Narrative Exam Narrative: GENERAL APPEARANCE: Well developed, well nourished, in no acute distress. Saturating in the mid 90s on room air. SKIN: Inspection of the skin reveals no rashes, ulcerations or petechiae. HEENT: Normocephalic atraumatic, extraocular muscles are intact, oropharynx is clear and mucous membranes are dry, neck is supple without adenopathy NECK: Supple and symmetric. There was no thyroid enlargement, and no tenderness, or masses were felt. CHEST: Normal AP diameter and normal contour without any kyphoscoliosis. LUNGS: Mild bibasilar rales, no wheezing. Rales did improve with forced cough. CARDIOVASCULAR: There was a regular rate and rhythm without any murmurs, gallops, rubs. Peripheral pulses were 2+ and symmetric. ABDOMEN: Soft and nontender with normal bowel sounds. No ascites was noted. MUSCULOSKELETAL: There was no tenderness or effusions noted. Muscle strength and tone were normal. EXTREMITIES: No cyanosis, clubbing or edema. NEUROLOGIC: Alert and oriented x 3. Normal affect. Strength is +5/5 in the Upper Extremities and Lower Extremities Bilaterally. Sensation to touch was normal. Objective Labs Result Diagrams: 02/01/20 05:19 02/01/20 05:19 Labs: Laboratory Results - last 24 hr 02/01/20 02/01/20 02/01/20 05:19 05:19 05:19 WBC 4.7 RBC 4.29 Hgb 11.6 L Hct 35.5 L MCV 82.8 MCH 27.1 MCHC 32.7 RDW 14.2 Plt Count 171 Neut % (Auto) 78.7 H Lymph % (Auto) 10.3 L [place] % (Auto) 10.8 Eos % (Auto) 0.0 L Baso % (Auto) 0.2 Neut # (Auto) 3700 Lymph # (Auto) 500 L [place] # (Auto) 500 Eos # (Auto) 0 Baso # (Auto) 0 Sodium 136 L Potassium 3.2 L Chloride 106 Carbon Dioxide 25 BUN 20 H Creatinine 0.70 Estimated GFR > 60.0 BUN/Creatinine Ratio 28.6 H Glucose 101 D Hemoglobin A1c Calcium 8.4 Magnesium 2.0 Total Bilirubin 0.4 Conjugated Bilirubin 0.0 Unconjugated Bilirubin 0.4 AST 84 H ALT 38 H Alkaline Phosphatase 73 Total Protein 6.4 Albumin 3.3 L Globulin 3.1 Albumin/Globulin Ratio 1.1 TSH 0.44 L Free T4 1.36 02/01/20 05:19 WBC RBC Hgb Hct MCV MCH MCHC RDW Plt Count Neut % (Auto) Lymph % (Auto) [place] % (Auto) Eos % (Auto) Baso % (Auto) Neut # (Auto) Lymph # (Auto) [place] # (Auto) Eos # (Auto) Baso # (Auto) Sodium Potassium Chloride Carbon Dioxide BUN Creatinine Estimated GFR BUN/Creatinine Ratio Glucose Hemoglobin A1c 6.5 H Calcium Magnesium Total Bilirubin Conjugated Bilirubin Unconjugated Bilirubin AST ALT Alkaline Phosphatase Total Protein Albumin Globulin Albumin/Globulin Ratio TSH Free T4 Assessment & Plan Assessment & Plan narrative: Annie Henriquez is a 69-year-old female with past medical history of hypertension, hyperlipidemia, reported DM (not on current medications per med list) who was brought in by EMS after a fall at home, this is likely due to weakness in the setting influenza a. 1. Influenza a, acute, present on admission -continue supportive care with Tylenol for fever suppression, IV fluids for rehydration given diarrhea, patient received 2 L IV fluids in the ED and she did have some bibasilar rales will back off to 50 cc/hour at this time. -continue Tamiflu 75 mg daily -droplet precautions 2. Diabetes, unknown type but likely type 2, not on long-term insulin use -A1c 6.5%, patient's current medication list does not list any antihyperglycemics. -patient's admission glucose was 206, continue fingersticks a.c. HS with low-dose sliding scales coverage and adjustment as necessary. 3. Hypertension, chronic, present on admission -continue home irbesartan and amlodipine 4. Hyperlipidemia, chronic -continue home pravastatin 5. Acute dehydration, present on admission -IV fluids were continued into the patient was adequately hydrated. 6. Acute cystitis, present on admission -patient with positive UA, sent for cultures -will treat with ceftriaxone currently. Patient only requires 3 days of therapy as this appears uncomplicated. Today is day 2/3. 7. Transaminitis, acute -likely in the setting of influenza, will continue to follow. Dispo: Remains observation, anticipate discharge tomorrow. Code: Full, surrogate decision maker is the patient's daughter. DVT: Lovenox daily
--- NOTE | 2020-02-01 16:08 | CM.DANOTE ---
Discharge Planning/Care Management DCP: assessment: case received and discussed in Bedside Team Rounds. Pt+ for influenza A/ DROPLET PRECAUTIONS: Dr. Preciado conducted Rounds outside the room. Pt is a 69 year old female who admitted yesterday afternoon to care of hospitalist team. PCP: listed as Ladi Gandara Payer: Medicare Dr. Preciado ordered PT and pt has now had first eval. Per PT pt at baseline is functionally independent in the community and drives. She shares a residence with her daughter who does work. Unknown at this time if there are other family members in the community who might assist pt in her recovery process at home. She is not ready for d/c today but does tell staff that she is already feeling better. Have left a vm with pt's daughter Caroline Martinez: [phone] with request to call the DCP office/# provided to assist in the dc planning process. DCP team will be following. CM Discharge Assessment Start: 02/01/20 16:03 Freq: Status: Active Protocol: Document 02/01/20 16:03 ITV (Rec: 02/01/20 16:07 ITV [id number]) Discharge Planning Assessment Advance Directives? No History Provided By Medical Record Prior Living Arrangements House Household Members children Comment lives in same building as her daughter who does work Type of transportation used prior to Drives own vehicle admit Independent with ADL's Yes: Per PT assessment Is patient alert and oriented? Yes Review Status In Process
[2020-02-01 16:35] VITALS: BP 151/76; PULSE 71; RESP 16; TEMP 36.6; O2SAT 94
[2020-02-01] MEDS: PRAVASTATIN 20 MG TABLET 40 MG PO (17:39)
[2020-02-01] MEDS: ACETAMINOPHEN 325 MG TABLET 650 MG PO (17:41)
[2020-02-01 20:35] VITALS: BP 127/70; PULSE 63; RESP 15; TEMP 36.8; O2SAT 95
[2020-02-01] MEDS: CEFTRIAXONE 1 GM/50 ML FROZ.PIGGY IV (20:53)
--- NOTE | 2020-02-01 22:55 | PC.NURSE ---
Pt treated for right knee pain with tylenol and pt reports good results. Prefers LLE elevated on pillow x 1. Assist x 1 as has difficulty getting out of bed to toilet. Able to ambulate into bathroom with standby assistance using walker. Afebrile this shift. Room air 95%. Expiratory wheeze and dyspnea with exertion. Bed alarm set. Droplet precautions in place.
[2020-02-02] VITALS: BP 129/73; PULSE 58; RESP 18; TEMP 37.1; O2SAT 92
[2020-02-02 05:00] VITALS: BP 137/73; PULSE 65; RESP 16; TEMP 36.7; O2SAT 96
[2020-02-02 05:46] LABS: Add Manual Diff / Slide Review NO; Basophils Absolute Auto 0 /uL (0-100); Basophils Percent Auto 0.3 % (0-2); Eosinophils Absolute Auto 100 /uL (0-450); Lymphocytes Absolute Auto 700 /uL (1100-4500); Lymphocytes Percent Auto 23.1 % (25-40); Mean Corpuscular HGB Conc 32.6 % (30-36); Mean Corpuscular Hemoglobin 26.9 PG (26-34); Mean Corpuscular Volume 82.5 fL (80-100); Monocytes Absolute Auto 500 /uL (0-900); Monocytes Percent Auto 14.7 % (3-14); Neutrophils Absolute Auto 1900 /uL (1500-7000); Neutrophils Percent Auto 59.9 % (50-75); Platelet Count 171 X10^3/uL (150-400); Red Blood Cell Count 4.48 X10^6/uL (4.0-5.2); Red Cell Distribution Width 14.5 % (11.6-14.8); White Blood Cell Count 3.1 X10^3/uL (4.5-11.0)
[2020-02-02 06:10] LABS: Alanine Aminotransferase 42 IU/L (<35); Albumin 3.5 g/dL (3.5-5.0); Albumin Globulin Ratio 1.2 (1.0-2.8); Alkaline Phosphatase 72 U/L (38-126); Aspartate Aminotransferase 95 IU/L (14-36); BUN Creatinine Ratio 29.7 (6-22); Bilirubin Total 0.4 mg/dL (0.2-1.3); Bilirubin Unconjugated 0.2 mg/dL (0.0-1.1); Blood Urea Nitrogen 22 mg/dL (7-17); Calcium 8.6 mg/dL (8.4-10.2); Carbon Dioxide 25 mmol/L (22-32); Chloride 107 mmol/L (98-107); Estimated Glomerular Filt Rate > 60.0 mL/min (>60); Globulin 2.9 g/dL (1.7-4.1); Glucose 96 mg/dL (80-110); HEMOLYSIS < 15 (0-50); Magnesium 2.1 mg/dL (1.6-2.3); Potassium 3.4 mmol/L (3.4-5.1); Sodium 142 mmol/L (137-145); Total Protein 6.4 g/dL (6.3-8.2)
[2020-02-02] MEDS: PANTOPRAZOLE 20 MG TABLET PO (06:21)
[2020-02-02] MEDS: CALCIUM CARBONATE 500 MG TAB 1500 MG PO (08:13)
[2020-02-02] MEDS: ASPIRIN EC 81 MG TABLET PO (08:13)
[2020-02-02] MEDS: AMLODIPINE 5 MG TABLET PO (08:13)
[2020-02-02] MEDS: ENOXAPARIN 40 MG/0.4 ML SYRINGE SUBCUT (08:13)
[2020-02-02] MEDS: IRBESARTAN 150 MG TABLET 75 MG PO (08:14)
[2020-02-02 08:15] VITALS: BP 154/66; PULSE 52; RESP 17; TEMP 37.1; O2SAT 97
[2020-02-02] MEDS: OSELTAMIVIR 75 MG CAPSULE PO (08:15)
--- NOTE | 2020-02-02 11:13 | P.DS_ITS ---
History of Present Illness History of Present Illness Chief complaint: weakness Narrative: Annie Henriquez is a 69-year-old female with past medical history of hypertension, hyperlipidemia, reported DM (not on current medications per med list) who was brought in by EMS after a fall at home. Starting yesterday, the p atient began to feel weak and tired. She got up this morning and tried to ambulate but fell on the floor. Her daughter has also been sick with the flu, and could not orange picker machine operator the patient herself so she called EMS. With her fall she did not hit her head, she takes aspirin but no blood thinners. She denies any back or neck pain at this time and she did not pass out. She did feel dizzy prior to the fall, but denies any palpitations, chest pain, shortness of breath prior to the fall. She denies any shortness of breath currently. She denies any nausea or vomiting. She has been urinating quite frequently but denies any dysuria, abdominal pain, or flank pain. She denies fevers or chills sub jectively at home. She does have a productive cough of green sputum over the past 3 days. In the ED, patient had low-grade fever, but was febrile to 102.7 [address]. She was mildly hypertensive, and mildly tachypneic, but not hypoxic and did not require supplemental oxygen. Patient attempted to ambulate, but was unable to due to weakness after 2 L of IVF. Initial CBC was unremarkable, admission glucose of 206, AST of 43, creatinine of 0.93, proBNP of 615, procalcitonin negative. UA with many urine bacteria, 1-5 WBC, 5-10 RBC, was sent for culture. Flu A testing was positive. CXR was negative for acute processes. Blood cultures were taken x2. Patient was admitted under observation status for influenza. Discharge Providers Provider Date of admission: 01/31/20 13:46 Discharge Date: 02/02/20 Primary care physician: LANI Wren Consults: 02/01/20 07:23 Consult to Physical Therapy Evaluate & Treat Comment: Physician Instructions: Evaluate and Treat Discharge provider: Shane Preciado DO Summary Hospital Course Discharge Diagnosis: Please see discharge summary by problem list below. Hospital Course: Annie Henriquez is a 69-year-old female with past medical history of hypertension, hyperlipidemia, reported DM (not on current medications per med list) who was brought in by EMS after a fall at home, this is likely due to weakness in the setting influenza a. She improved with IV fluids and symptomatic control, and was able to be discharged home. 1. Influenza a, acute, present on admission -patient was treated with IV fluids for rehydration, Tylenol for pain control, and other supportive measures. She ultimately improved symptomatically and was discharged home. 2. Diabetes, unknown type but likely type 2, not on long-term insulin use -A1c 6.5%, patient's current medication list does not list any antihyperglycemics. And in a 69-year-old female this A1c is adequate control. No oral antihyperglycemics were initiated. 3. Hypertension, chronic, present on admission -continue home irbesartan and amlodipine, no medication changes are recommended. 4. Hyperlipidemia, chronic -continue home pravastatin, no medication changes are recommended. 5. Acute dehydration, present on admission -IV fluids were continued into the patient was adequately hydrated. 6. Acute cystitis, present on admission -patient with positive UA, sent for cultures -patient was treated with 2 days of IV ceftriaxone while inpatient. She was discharged to complete final day on an oral cephalosporin. 7. Transaminitis, acute -likely in the setting of influenza, will continue to follow. Dispo: Discharge home. Exam Vital Signs (past 8 hours): - 02/02/20 05:00 02/02/20 08:15 Temperature 98.1 F 98.8 F Pulse Rate 65 52 L Respiratory Rate 16 17 Blood Pressure 137/73 154/66 H Pulse Oximetry 96 97 Oxygen Delivery Method Room Air Oxygen Flow Rate 0 Narrative Exam Narrative: GENERAL APPEARANCE: Well developed, well nourished, in no acute distress. Saturating in the mid 90s on room air. SKIN: Inspection of the skin reveals no rashes, ulcerations or petechiae. HEENT: Normocephalic atraumatic, extraocular muscles are intact, oropharynx is clear and mucous membranes are dry, neck is supple without adenopathy NECK: Supple and symmetric. There was no thyroid enlargement, and no tenderness, or masses were felt. CHEST: Normal AP diameter and normal contour without any kyphoscoliosis. LUNGS: Mild bibasilar rales, no wheezing. Rales did improve with forced cough. CARDIOVASCULAR: There was a regular rate and rhythm without any murmurs, gallops, rubs. Peripheral pulses were 2+ and symmetric. ABDOMEN: Soft and nontender with normal bowel sounds. No ascites was noted. MUSCULOSKELETAL: There was no tenderness or effusions noted. Muscle strength and tone were normal. EXTREMITIES: No cyanosis, clubbing or edema. NEUROLOGIC: Alert and oriented x 3. Normal affect. Strength is +5/5 in the Upper Extremities and Lower Extremities Bilaterally. Sensation to touch was normal. Objective Labs Result Diagrams: 02/02/20 05:10 02/02/20 05:10 Labs: Laboratory Results - last 24 hr 02/02/20 02/02/20 05:10 05:10 WBC 3.1 L RBC 4.48 Hgb 12.0 Hct 37.0 MCV 82.5 MCH 26.9 MCHC 32.6 RDW 14.5 Plt Count 171 Neut % (Auto) 59.9 Lymph % (Auto) 23.1 L [place] % (Auto) 14.7 H Eos % (Auto) 2.0 Baso % (Auto) 0.3 Neut # (Auto) 1900 Lymph # (Auto) 700 L [place] # (Auto) 500 Eos # (Auto) 100 Baso # (Auto) 0 Sodium 142 Potassium 3.4 Chloride 107 Carbon Dioxide 25 BUN 22 H Creatinine 0.74 Estimated GFR > 60.0 BUN/Creatinine Ratio 29.7 H Glucose 96 Calcium 8.6 Magnesium 2.1 Total Bilirubin 0.4 Conjugated Bilirubin 0.0 Unconjugated Bilirubin 0.2 AST 95 H ALT 42 H Alkaline Phosphatase 72 Total Protein 6.4 Albumin 3.5 Globulin 2.9 Albumin/Globulin Ratio 1.2 Discharge Plan Discharge Plan Patient Disposition: Home Discharge comment: You were admitted to the hospital because of weakness due to the flu. You improved with IV hydration. You should continue Tamiflu for an additional 3 days. Please follow-up with her primary care provider as previously scheduled, however if you still feel weak please try and see them next week to check on your symptoms. You were also found to have a Urinary tract infection and should complete an additional day of antibiotics. Discharge orders & Medications Prescriptions: New cefpodoxime 200 mg tablet 200 mg PO BID 1 Days Qty: 2 RF: 0 Continued pravastatin [Pravachol] 40 MG tablet 40 mg PO QPM Qty: 0 RF: 0 amlodipine 5 mg tablet 5 mg PO DAILY RF: 0 oseltamivir 75 mg capsule 75 mg PO DAILY RF: 0 omeprazole 20 mg capsule,delayed release(DR/EC) 20 mg PO DAILY RF: 0 irbesartan 75 mg tablet 75 mg PO DAILY RF: 0 ketoconazole 2 % cream 1 applic TOPICAL BID RF: 0 calcium carbonate [Calcium 500] 500 mg calcium (1,250 mg) Tablet,Chewable 1,500 mg PO DAILY RF: 0 aspirin 81 MG tablet,delayed release (DR/EC) 81 mg PO DAILY RF: 0 Follow up/Referrals: Ladi Gandara ARNP [Primary Care Provider] - Discharge Health Status Health Concerns: Influenza UTI Multidrug resistant organism: No MDRO Diet/Activity/Treatments Diet: Diet as Tolerated and Carb-consistent/Diabetic Activity: As tolerated Visit Report/Discharge Packet Visit Report Forms: Patient Portal/API, Stroke Signs & Symptoms Discharge Data Primary Care Provider: Ladi Gandara Attending Provider: Shane Preciado Admit Date/Time: 01/31/20 13:46 Discharges patient from system. Discharge Date/Time: 02/02/20 12:30
--- NOTE | 2020-02-02 11:15 | PC.NURSE ---
Patient up to the chair for breakfast. Denies SOB, breathing unlabored, expiratory wheezes in bilateral bases, dry cough noted. Saline locked. Afebrile, no n/v. Patient up to restroom with SBA. Chair alarm on and call light in reach.
--- NOTE | 2020-02-02 11:39 | CM.DPC ---
DCP Cont: Dr. Preciado stated that patient can benefit with home health. Went ahead and had him sign face to face. Daughter called to check on patient, Leonarda, gave update. [facility]dered [facility], [facility], patient has no preference on agencies, and confirmed with Nereyda at [facility] that they can see patient as soon as Tuesday. P: Patient will go home with [facility]. Perla Motta RN/Cardiology Physician
== END 2020-02-02 12:30 | disposition home or self-care (01) ==
LOC: ED 13:47 → AC 13:48
PROVIDERS: Admitting Provider Internal Medicine; Emergency Provider Emergency Medicine; PCP Nurse Practitioner Family; Referring Provider Emergency Medicine; Visit Provider Internal Medicine
DX: J10.1 Influenza due to other identified influenza virus with other respiratory manifestations (principal); R06.02 Shortness of breath; R53.1 Weakness; R55 Syncope and collapse; R19.7 Diarrhea, unspecified; W18.30XA Fall on same level, unspecified, initial encounter; Y92.009 Unspecified place in unspecified non-institutional (private) residence as the place of occurrence of the external cause; E11.9 Type 2 diabetes mellitus without complications; E78.5 Hyperlipidemia, unspecified; I10 Essential (primary) hypertension; E86.0 Dehydration; N30.00 Acute cystitis without hematuria; R74.0 Nonspecific elevation of levels of transaminase and lactic acid dehydrogenase [LDH]
CPT/HCPCS: 36415; 71045; 80048; 80053; 80076; 81003; 81015; 82550; 82553; 82962; 83036; 83605; 83690; 83735; 83880; 84145; 84439; 84443; 84484; 85025; 85610; 85730; 87040; 87077; 87086; 87186; 87502; 93005; 96361; 96365; 96366; 96372; 96375; 97161; 97530; 99284; 99285; G0378; J1650; J2405

== ENCOUNTER → 2020-05-21 17:23 | Outpatient (ROUT) | payer MEDICARE, MEDICAID, SELFPAY ==
[2020-01-31 16:23] VITALS: BMI 30.2
== END ==
PROVIDERS: PCP Nurse Practitioner Family; Visit Provider Dermatology
DX: L08.9 Local infection of the skin and subcutaneous tissue, unspecified (principal); E11.8 Type 2 diabetes mellitus with unspecified complications
CPT/HCPCS: 87070; 87075; 87077; 87186; 87205

== ENCOUNTER → 2021-01-23 11:20 | Outpatient (CLI) | payer MEDICARE, MEDICAID, SELFPAY ==
[2020-01-31 16:23] VITALS: BMI 30.2
--- NOTE | 2021-01-23 | DI.MG.S_ITS ---
BILATERAL DIGITAL SCREENING MAMMOGRAM 3D/2D WITH CAD: 01/23/2021 CLINICAL: Routine screening. Comparison is made to exams dated: 04/05/2018 mammogram, 04/04/2017 mammogram, and 04/02/2016 mammogram - [facility]. The tissue of both breasts is heterogeneously dense. This may lower the sensitivity of mammography. Current study was also evaluated with a Computer Aided Detection (CAD) system. No significant masses, calcifications, or other findings are seen in either breast. There has been no significant interval change. IMPRESSION: NEGATIVE There is no mammographic evidence of malignancy. A 1 year screening mammogram is recommended. This exam was interpreted at Station ID: [id number]. NOTE: For mammograms, a report in lay terms will be sent to the patient. Approximately 15% of breast malignancies will not be visualized mammographically. In the management of a palpable breast mass, a negative mammogram must not discourage biopsy of a clinically suspicious lesion. Electronically Signed By: Francesco hines/dolores:01/23/2021 12:36:35 letter sent: Normal Exam ACR BI-RADS Category 1: Negative 3341F
== END ==
PROVIDERS: PCP Internal Medicine; Referring Provider Internal Medicine; Visit Provider Internal Medicine
DX: Z12.31 Encounter for screening mammogram for malignant neoplasm of breast (principal)
CPT/HCPCS: 77063; 77067

== ENCOUNTER → 2021-02-05 09:24 | Outpatient (CLI) | payer MEDICARE, MEDICAID, SELFPAY ==
[2020-01-31 16:23] VITALS: BMI 30.2
[2021-02-05 11:18] LABS: COVID19 -Nasal RAPID Negative (Negative)
== END ==
PROVIDERS: PCP Internal Medicine; Visit Provider Specialist
DX: Z20.822 Contact with and (suspected) exposure to COVID-19 (principal)
CPT/HCPCS: 87635; C9803

== ENCOUNTER 2021-02-06 09:19 | Day surgery (SDC) | payer MEDICARE, MEDICAID, SELFPAY ==
[2020-01-31 16:23] VITALS: BMI 30.2
[2021-02-06] MEDS: LACTATED RINGERS 1,000 ML 200 ML IV (09:40)
[2021-02-06 09:41] VITALS: BMI 33.2
[2021-02-06 09:50] VITALS: BP 132/87; PULSE 97; RESP 16; TEMP 36.1; O2SAT 98
[2021-02-06 10:31] VITALS: BMI 33.2
--- NOTE | 2021-02-06 11:22 | P.HP_ITS ---
History of Present Illness History of Present Illness Date Patient Seen: 02/06/21 Time Patient Seen: 11:23 Chief complaint: SDC Narrative: The patient is a woman here for screening colonoscopy. He had polyps removed at her last scope which was 5 years ago. Patient History Medical History Diabetes HLD (hyperlipidemia) HTN (hypertension) Family & Social History Social History: household members children Tobacco & Substance use: Smoking Status Never smoker alcohol intake never Substance Use Type does not use Meds Home Medications and Allergies Home Medications Medication Instructions Recorded Confirmed Type pravastatin [Pravachol] 40 mg PO QPM #0 02/04/10 02/06/21 History amlodipine 5 mg PO DAILY 01/31/20 02/06/21 History aspirin 81 mg PO DAILY 01/31/20 02/06/21 History calcium carbonate [Calcium 500] 1,500 mg PO DAILY 01/31/20 02/06/21 History irbesartan 75 mg PO DAILY 01/31/20 02/06/21 History ketoconazole 1 applic TOPICAL BID 01/31/20 02/06/21 History omeprazole 20 mg PO DAILY 01/31/20 02/06/21 History oseltamivir 75 mg PO DAILY 01/31/20 02/06/21 History folic acid 0.4 mg PO DAILY 02/06/21 02/06/21 History metformin 500 mg PO 4-6XD 02/06/21 02/06/21 History Allergies Allergy/AdvReac Type Severity Reaction Status Date / Time No Known Drug Allergies Allergy Verified 02/06/21 09:39 Review of Systems Review of Systems ROS: Yes All systems reviewed with the patient and are negative except as otherwise documented Exam Vital Signs (past 8 hours): - 02/06/21 09:50 Temperature 97.0 F L Pulse Rate 97 H Respiratory Rate 16 Blood Pressure 132/87 Pulse Oximetry 98 Oxygen Delivery Method Room Air Narrative Exam Narrative: Pleasant cooperative patient no apparent distress. Lungs are clear to auscultation. No rales or rhonchi. Heart regular rate and rhythm no murmur gallop. Abdomen is soft nontender without mass. No obvious hernias. Patient is alert and oriented x3. Assessment & Plan Assessment & Plan narrative: The patient for a screening colonoscopy. I have discussed the procedure with them. Risks of bleeding, perforation which would necessitate major operation, failure to find remove all lesions, the potential tattoo were all discussed. All questions were answered. They wished to proceed . Quality MIPS - Admit Advanced Care Plan / Current Medications Measures: #47 ? Advanced Care Plan Clinician documentation instruction: document at admission. [] I confirmed that the patient's Advance Care Plan is present, code status is documented, or surrogate decision maker is listed in the patient?s medical record. [SATISFIES MIPS PERFORMANCE] If Yes, Stop Here [] The patient?s Advance Care plan is not present because: (select) [MIPS PERFORMANCE EXCEPTION/EXCLUSION] [] I confirmed today that the patient does not wish or was not able to name a surrogate decision maker or provide an Advance Care Plan. [] Hospice care is currently being provided or has been provided this calendar year [] I did NOT confirm today the presence of an Advance Care Plan or surrogate decision maker documented within the patient's medical record. [DOES NOT SATISFY MIPS PERFORMANCE] #130 - Documentation of Current Medications in the Medical Record Clinician documentation instruction: use macro the first time you see a patient. [] I have utilized all available immediate resources to obtain, update, or review the patient?s current medications. [SATISFIES MIPS PERFORMANCE] If Yes, Stop Here [] The patient is not eligible for medication reconciliation; the patient is in an emergent medical situation where delaying treatment would jeopardize the patient?s health. [MIPS PERFORMANCE EXCEPTION/EXCLUSION] [] I did NOT confirm, update or review the patient's current list of medications today. [DOES NOT SATISFY MIPS PERFORMANCE] MIPS - CL Central Venous Catheter Placement Measure: #76 ? Prevention of Central Venous Catheter (CVC) ? Related Bloodstream Infection Clinician documentation instruction: use macro every time you place a central line. [] All elements of Maximal Sterile Barrier Technique, including hand hygiene, skin prep, and sterile ultrasound technique (if used) were followed. [SATISFIES MIPS PERFORMANCE] If Yes, Stop Here [] If ?No?, the medical reason all elements were NOT used for medical reason [] (ex. emergent condition). [] Maximal Sterile Barrier Technique was not followed, no reason provided [DOES NOT SATISFY MIPS PERFORMANCE] MIPS - DC Heart Failure Measures: #5 - Heart Failure (HF): Angiotensin-Converting Enzyme (CINDY) Inhibitor or Angiotensin Receptor Briseyda (ARB) Therapy for Left Ventricular Systolic Dysfunction (LVSD) and #8 - Heart Failure (HF): Beta-Briseyda Therapy for Left Ventricular Systolic Dysfunction (LVSD) Clinician documentation instruction: use macro at every CHF discharge. [] The patient has current or prior documentation of left ventricular ejection fraction (LVEF) less than 40%, or moderate or severely depressed left v entricular systolic function. Answer both: [SATISFIES MIPS PERFORMANCE] [] The patient was prescribed or already taking an Angiotensin-Converting Enzyme (CINDY) Inhibitor, or Angiotensin Receptor Briseyda (ARB). [] The patient was prescribed or already taking a beta-briseyda. If Yes to Both, Stop Here [] Patient not prescribed/taking: [MIPS PERFORMANCE EXCEPTION/EXCLUSION] [] CINDY or ARB for medical/patient/system reason(s) including [] (ex. allergy, intolerance, contraindication) [] Beta-briseyda for medical/patient/system reason(s) including [] (ex. allergy, intolerance, contraindication) [] Patient not prescribed/taking: [DOES NOT SATISFY MIPS PERFORMANCE] [] CINDY or ARB, no reason given [] Beta-briseyda, no reason given
--- NOTE | 2021-02-06 11:24 | PM.PREOP ---
Pre-operative Note COVID-19 COVID-19 status: Negative Result date/Date tested (Pos, Neg/Pending): 02/05/21 Interval Note History & Physical reviewed/Exam performed by Physician: Yes Changes to H&P: No ASA Class (for procedural sedation): II
[2021-02-06] MEDS: fentaNYL 250 MCG/5 ML INJ IV (11:35)
[2021-02-06] MEDS: MIDAZOLAM 5 MG/5 ML VIAL IV (11:35)
--- NOTE | 2021-02-06 11:55 | P.OP.ENDO_ITS ---
Operative Date/Time/Diagnoses Date of procedure: 02/06/21 Time of procedure: 11:55 Pre-op diagnosis: Screening examination. Last colonoscopy 5 years ago. Post-op diagnosis: same Procedure & Clinicians Study performed: Colonoscopy Same procedure as scheduled: Yes Indications: Screening. Patient with a history of polyps. Last colonoscopy 5 years ago. Surgeon: Harry Villegas Procedure Notes SCOAP/Timeout: Performed Procedure in detail: The patient was placed in the left lateral decubitus position and underwent IV sedation directed by the surgeon consisting of fentanyl and Versed. Digital exam was remarkable for decreased sphincter tone and some thinning of the rectovaginal septum.. The scope was inserted and advanced through the rectum into the sigmoid, descending, transverse, and ascending colon. Patient was noted to have diverticulosis. Pressure was applied to make our way into the cecum.. The cecum was reached identified by the ileocecal valve and the appendiceal opening. The ileocecal valve was cavazos ccessfully cannulated. The terminal ileum was normal in appearance. The scope was gradually brought out. No Polyps were found. The scope ultimately was retroflexed in the rectum. The appearance was remarkable for rather large internal hemorrhoids.. The scope was removed and the patient tolerated the procedure well. The prep was very good. Scope withdrawal time: 7-1/2 minutes Sedation minutes: 27 Findings: diverticulosis Specimen(s): none sent Complications: none Post-procedure Recommendations: Colonscopy in 5 years (Due to history of polyps) Follow up: as needed Disposition: PACU
[2021-02-06 11:56] VITALS: BP 113/75; PULSE 72; RESP 9; TEMP 36.4; O2SAT 96
[2021-02-06 12:01] VITALS: BP 120/74; PULSE 71; RESP 9; O2SAT 97
[2021-02-06 12:11] VITALS: BP 115/64; PULSE 64; RESP 12; O2SAT 96
[2021-02-06 12:25] VITALS: BP 110/64; PULSE 60; RESP 12; TEMP 36.7; O2SAT 97
== END 2021-02-06 12:46 | disposition home or self-care (01) ==
PROVIDERS: PCP Internal Medicine; Referring Provider Specialist; Visit Provider Specialist
PROC: 0DJD8ZZ Inspection of Lower Intestinal Tract, Via Natural or Artificial Opening Endoscopic (ICD-10-PCS; CPT 45378; principal; 2021-02-06 10:45)
DX: Z12.11 Encounter for screening for malignant neoplasm of colon (principal); Z86.010 Personal history of colon polyps; E11.9 Type 2 diabetes mellitus without complications; Z79.84 Long term (current) use of oral hypoglycemic drugs; E78.5 Hyperlipidemia, unspecified; K57.30 Diverticulosis of large intestine without perforation or abscess without bleeding; K64.8 Other hemorrhoids; I10 Essential (primary) hypertension
CPT/HCPCS: G0105; 99152; 99153; J2250; J3010

== ENCOUNTER → 2021-02-10 15:13 | Outpatient (CLI) | payer MEDICARE, MEDICAID, SELFPAY ==
[2020-01-31 16:23] VITALS: BMI 30.2
[2021-02-10] MEDS: COVID-19 VACC #1, MRNA(MOD) 100 MCG/0.5 ML VIAL IM (15:22)
== END ==
PROVIDERS: PCP Internal Medicine; Visit Provider Internal Medicine
DX: Z23 Encounter for immunization (principal)
CPT/HCPCS: 0011A; 91301

== ENCOUNTER → 2021-03-11 07:54 | Outpatient (CLI) | payer MEDICARE, MEDICAID, SELFPAY ==
[2020-01-31 16:23] VITALS: BMI 30.2
[2021-03-11] MEDS: COVID-19 VACC #2, MRNA(MOD) 100 MCG/0.5 ML VIAL IM (08:06)
== END ==
PROVIDERS: PCP Internal Medicine; Visit Provider Internal Medicine
DX: Z23 Encounter for immunization (principal)
CPT/HCPCS: 0012A; 91301

== ENCOUNTER → 2021-12-22 11:24 | Outpatient (CLI) | payer MEDICARE, MEDICAID, SELFPAY ==
[2020-01-31 16:23] VITALS: BMI 30.2
== END ==
PROVIDERS: PCP Internal Medicine; Referring Provider Internal Medicine; Visit Provider Internal Medicine
DX: Z78.0 Asymptomatic menopausal state (principal); M85.851 Other specified disorders of bone density and structure, right thigh; E11.9 Type 2 diabetes mellitus without complications
CPT/HCPCS: 77080

== ENCOUNTER → 2022-01-28 07:59 | Outpatient (CLI) | payer MEDICARE, MEDICAID, SELFPAY ==
[2020-01-31 16:23] VITALS: BMI 30.2
--- NOTE | 2022-01-28 | DI.MG.S_ITS ---
BILATERAL DIGITAL SCREENING MAMMOGRAM 3D/2D WITH CAD: 01/28/2022 CLINICAL: Routine screening. Comparison is made to exams dated: 01/23/2021 mammogram, 04/05/2018 mammogram, 04/04/2017 mammogram, and 04/02/2016 mammogram - [facility]. The tissue of both breasts is heterogeneously dense. This may lower the sensitivity of mammography. Current study was also evaluated with a Computer Aided Detection (CAD) system. No significant masses, calcifications, or other findings are seen in either breast. There has been no significant interval change. IMPRESSION: NEGATIVE There is no mammographic evidence of malignancy. A 1 year screening mammogram is recommended. This exam was interpreted at Station ID: [id number]. NOTE: For mammograms, a report in lay terms will be sent to the patient. Approximately 15% of breast malignancies will not be visualized mammographically. In the management of a palpable breast mass, a negative mammogram must not discourage biopsy of a clinically suspicious lesion. Electronically Signed By: Shiva benietz/dolores:01/28/2022 09:28:31 letter sent: Normal Exam ACR BI-RADS Category 1: Negative 3341F
== END ==
PROVIDERS: PCP Internal Medicine; Referring Provider Internal Medicine; Visit Provider Internal Medicine
DX: Z12.31 Encounter for screening mammogram for malignant neoplasm of breast (principal)
CPT/HCPCS: 77063; 77067

== ENCOUNTER 2022-03-31 17:27 | Emergency (ER) | payer MEDICARE, SELFPAY ==
[2020-01-31 16:23] VITALS: BMI 30.2
[2022-03-31] VITALS (8 sets, daily range): BP systolic 145–173; BP diastolic 65–75; PULSE 58–82; RESP 16; TEMP 36.2; O2SAT 94–99; BMI 35.2
--- NOTE | 2022-03-31 20:31 | ED_ITS ---
HPI - Nausea/Vomiting/Diarrhea General Chief complaint: Nausea/Vomiting/Diarrhea Stated complaint: diarrhea Time Seen by Provider: 03/31/22 20:31 Source: patient Mode of arrival: Wheelchair Limitations: no limitations History of Present Illness HPI Narrative: This is a 72-year-old female with history of hypertension, dyslipidemia, diabetes who presents with nausea, 1 episode of vomiting and multiple episodes of watery diarrhea starting today. Patient denies any pain she denies any fevers or chills. She was nauseated through the day but had 1 episode of emesis in the department. She denies any chest pain or pressure, no abdominal, back or flank pain. She describes some mild shortness of breath. She denies any black or bloody stools. She states diarrhea is a large amount of liquidy stool followed by watery stool. Multiple episodes throughout the day. She denies any dysuria, urgency or frequency. She does not have any known sick contacts. She states she is up-to-date on her booster for coronavirus. Patient has not been having similar symptoms recently. Related Data Home Medications Medication Instructions Recorded Confirmed pravastatin 40 mg tablet 40 mg PO QPM #0 02/04/10 02/06/21 (Pravachol) amlodipine 5 mg tablet 5 mg PO DAILY 01/31/20 02/06/21 aspirin 81 mg tablet,delayed 81 mg PO DAILY 01/31/20 02/06/21 release calcium carbonate 500 mg calcium 1,500 mg PO DAILY 01/31/20 02/06/21 (1,250 mg) chewable tablet (Calcium 500) irbesartan 75 mg tablet 75 mg PO DAILY 01/31/20 02/06/21 ketoconazole 2 % topical cream 1 applic TOPICAL BID 01/31/20 02/06/21 omeprazole 20 mg capsule,delayed 20 mg PO DAILY 01/31/20 02/06/21 release oseltamivir 75 mg capsule 75 mg PO DAILY 01/31/20 02/06/21 folic acid 400 mcg tablet 0.4 mg PO DAILY 02/06/21 02/06/21 metformin 500 mg tablet 500 mg PO 4-6XD 02/06/21 02/06/21 Previous Rx's Medication Instructions Recorded ondansetron 4 mg disintegrating 4 mg PO Q6H PRN #7 tab 03/31/22 tablet Allergies Allergy/AdvReac Type Severity Reaction Status Date / Time No Known Drug Allergies Allergy Verified 02/06/21 09:39 Review of Systems Review of Systems ROS Unobtainable: All systems reviewed & are unremarkable except as noted in HPI and below Patient History Medical History Diabetes HLD (hyperlipidemia) HTN (hypertension) Social History household members: children Smoking Status: Never smoker alcohol intake: never Smoking Status: Never smoker Substance Use Type: does not use Exam Narrative Exam Narrative: GENERAL: Alert and oriented x three, obese female in mild distress. HEENT: Head normocephalic, atraumatic, EOMI, pupils reactive, face symmetric, moist mucous membranes NECK: Supple, full range of motion CARDIOVASCULAR: Regular rate and rhythm without murmurs, rubs or gallops. RESPIRATORY: Breath sounds equal bilaterally, no wheezes rales or rhonchi. ABDOMEN: Soft, nontender. Nondistended. Normoactive bowel sounds all 4 quadrants. No guarding or rebound, rigidity, no mass : No CVA tenderness EXTREMITIES: Normal range of motion, no clubbing or edema. Neurovascularly intact NEUROLOGICAL: Cranial nerves II through XII grossly intact. Moving all extremities SKIN: Warm, dry, no petechiae, no rashes or lesions. Initial Vital Signs Initial Vital Signs: Vital Signs Temperature 97.1 F L 03/31/22 17:31 Pulse Rate 58 L 03/31/22 17:31 Respiratory Rate 16 03/31/22 17:31 Blood Pressure 173/75 H 03/31/22 17:31 Pulse Oximetry 99 03/31/22 17:31 Course Orders Ordered: Discontinued Medications Sodium Chloride (Normal Saline 0.9%) 1,000 mls @ 1,000 mls/hr IV BOLUS ONE Stop: 03/31/22 21:30 Last Infusion: 04/01/22 00:07 Dose: 0 mls/hr Documented by: Admin: 03/31/22 21:21 Dose: 1,000 mls/hr Documented by: ALEX Ondansetron HCl (Ondansetron 4 Mg/2 Ml Inj) 4 mg IV NOW ONE Stop: 03/31/22 20:32 Last Admin: 05/11/22 21:21 Dose: 4 mg Documented by: ALEX Ondansetron HCl (Ondansetron 4 Mg Odt) 4 mg SL NOW ONE Stop: 03/31/22 23:31 Last Admin: 03/31/22 23:43 Dose: 4 mg Documented by: ALEX Reevaluation(s) Reevaluation #1: Patient is feeling better. She has not had any additional diarrhea. She is not nauseated currently. She ambulated back to the bathroom part way but felt a little bit lightheaded. Plan to complete fluids. If patient appropriate will discharge home with watchful waiting and short-term Zofran prescription. Time: 23:21 Vital Signs Vital signs: Vital Signs - 8 hr 03/31/22 17:31 03/31/22 21:27 03/31/22 21:30 Temperature 97.1 F L Pulse Rate 58 L 59 L 60 Respiratory Rate 16 Blood Pressure 173/75 H Pulse Oximetry 99 97 95 03/31/22 22:00 03/31/22 22:30 03/31/22 23:00 Temperature Pulse Rate 68 67 67 Respiratory Rate Blood Pressure Pulse Oximetry 98 96 94 03/31/22 23:23 Temperature Pulse Rate 82 Respiratory Rate Blood Pressure 145/65 H Pulse Oximetry 99 MDM - Nausea/Vomiting/Diarrhea Lab Data Result diagrams: 03/31/22 21:15 03/31/22 21:15 Labs: Lab Results 03/31/22 03/31/22 03/31/22 Range/Units 21:15 21:15 22:05 WBC 7.9 (4.5-11.0) X10^3/uL RBC 4.74 (4.0-5.2) X10^6/uL Hgb 13.1 (12.0-16.0) g/dL Hct 40.2 (36-46) % MCV 84.9 (80-100) fL MCH 27.6 (26-34) PG MCHC 32.6 (30-36) % RDW 13.4 (11.6-14.8) % Plt Count 272 (150-400) X10^3/uL Neut % (Auto) 86.5 H (50-75) % Lymph % (Auto) 9.3 L (25-40) % [place] % (Auto) 3.4 (3-14) % Eos % (Auto) 0.4 L (2-4) % Baso % (Auto) 0.4 (0-2) % Neut # (Auto) 6900 (9431-6690) /uL Lymph # (Auto) 700 L (2596-1784) /uL [place] # (Auto) 300 (0-900) /uL Eos # (Auto) 0 (0-450) /uL Baso # (Auto) 0 (0-100) /uL Sodium 137 (137-145) mmol/L Potassium 3.7 (3.4-5.1) mmol/L Chloride 102 (98-107) mmol/L Carbon Dioxide 24 (22-32) mmol/L BUN 25 H (7-17) mg/dL Creatinine 0.65 (0.52-1.04) mg/dL Estimated GFR > 60 (>60) mL/min BUN/Creatinine Ratio 38.5 H (6-22) Glucose 141 H (80-110) mg/dL Calcium 9.0 (8.4-10.2) mg/dL Total Bilirubin 1.0 (0.2-1.3) mg/dL AST 25 (14-36) IU/L ALT 17 (<35) IU/L Alkaline Phosphatase 67 (38-126) U/L Total Protein 7.7 (6.3-8.2) g/dL Albumin 4.5 (3.5-5.0) g/dL Globulin 3.2 (1.7-4.1) g/dL Albumin/Globulin Ratio 1.4 (1.0-2.8) Lipase 175 (23-300) U/L Urine Color Urine Appearance Urine pH (4.5-8.0) Ur Specific [place] (1.000-1.035) Urine Protein (Negative) Urine Glucose (UA) (Negative) g/dL Urine Ketones (NEGATIVE) Urine Occult Blood (Negative) Urine Nitrate (Negative) Urine Bilirubin (NEGATIVE) Urine Urobilinogen (0.2) E.U./dL Ur Leukocyte Esterase (NEGATIVE) Urine RBC (0-5/HPF) Urine WBC (0-5/HPF) Ur Squamous Epith Cells (0-5/HPF) Urine Bacteria (None) Ur Culture Indicated? SARS-CoV-2 (PCR) Negative (Negative) 03/31/22 Range/Units 22:22 WBC (4.5-11.0) X10^3/uL RBC (4.0-5.2) X10^6/uL Hgb (12.0-16.0) g/dL Hct (36-46) % MCV (80-100) fL MCH (26-34) PG MCHC (30-36) % RDW (11.6-14.8) % Plt Count (150-400) X10^3/uL Neut % (Auto) (50-75) % Lymph % (Auto) (25-40) % [place] % (Auto) (3-14) % Eos % (Auto) (2-4) % Baso % (Auto) (0-2) % Neut # (Auto) (9425-2624) /uL Lymph # (Auto) (3063-4769) /uL [place] # (Auto) (0-900) /uL Eos # (Auto) (0-450) /uL Baso # (Auto) (0-100) /uL Sodium (137-145) mmol/L Potassium (3.4-5.1) mmol/L Chloride (98-107) mmol/L Carbon Dioxide (22-32) mmol/L BUN (7-17) mg/dL Creatinine (0.52-1.04) mg/dL Estimated GFR (>60) mL/min BUN/Creatinine Ratio (6-22) Glucose (80-110) mg/dL Calcium (8.4-10.2) mg/dL Total Bilirubin (0.2-1.3) mg/dL AST (14-36) IU/L ALT (<35) IU/L Alkaline Phosphatase (38-126) U/L Total Protein (6.3-8.2) g/dL Albumin (3.5-5.0) g/dL Globulin (1.7-4.1) g/dL Albumin/Globulin Ratio (1.0-2.8) Lipase (23-300) U/L Urine Color Yellow Urine Appearance Clear Urine pH 6.5 (4.5-8.0) Ur Specific [place] 1.025 (1.000-1.035) Urine Protein 2+ H (Negative) Urine Glucose (UA) Negative (Negative) g/dL Urine Ketones 2+ H (NEGATIVE) Urine Occult Blood 1+ H (Negative) Urine Nitrate Negative (Negative) Urine Bilirubin Negative (NEGATIVE) Urine Urobilinogen 0.2 (0.2) E.U./dL Ur Leukocyte Esterase Negative (NEGATIVE) Urine RBC 0-1/hpf (0-5/HPF) Urine WBC 0-1/hpf (0-5/HPF) Ur Squamous Epith Cells 0-1 /hpf (0-5/HPF) Urine Bacteria None seen (None) Ur Culture Indicated? Cult not indicated SARS-CoV-2 (PCR) (Negative) Imaging Data Abdominal x-ray: Radiologist's Impression: Launch?[address] [address] XRay Report Signed Patient: Annie Henriquez MR#: [id number] : 1950 Acct:[id number] Age/Sex: 72 / F Date of Service: 03/31/22 Loc: ED Accession Number: [id number] ?? Procedure: XR abdomen min 2V Ordering Provider: Sara Quiles D.O. PROCEDURE:? XR ABDOMEN MIN 2V ? INDICATIONS:? vomiting and diarrhea ? TECHNIQUE:? 2 views of the abdomen were acquired.? ? COMPARISON:? None. ? FINDINGS:? Surgical changes and devices:? None.? ? Bowel:? No pneumoperitoneum.? There is a paucity of intraluminal gas.? No abnormal gas distended bowel loops identified. ? Soft tissues:? No suspicious abdominal calcifications.? ? Bones:? No suspicious bony abnormalities.? ? IMPRESSION:? ? 1. Nonspecific bowel gas pattern with a paucity of intraluminal gas.? No definite evidence of bowel obstruction.? ? Dictated by: Vinicio Li M.D. on 03/31/2022 at 22:08 ? ? Approved by: Vinicio Li M.D. on 03/31/2022 at 22:14? MDM Narrative Medical decision making narrative: This is a 72-year-old female with history of hypertension, dyslipidemia diabetes with persistent diarrhea for the past 12 hours and 1 episode of vomiting with emesis. Patient's labs are reassuring x-ray shows no acute changes. Patient has not had persistent or large amounts of diarrhea in the department. No additional vomiting. Plan for watchful waiting and re-evaluation is patient is without any pain. Discharge Plan Departure Patient Disposition: Home Clinical Impression: Diarrhea Instructions: DI for Vomiting -- Adult Activity Restrictions/Additional Instructions: Follow-up for recheck with your physician in the next several days if her symptoms are persisting. Your labs and imaging today are reassuring. You may take Zofran 1 tablet every 6 hours as needed for nausea and vomiting. Prescription sent to [facility] in [place]. Please return for fevers greater 100.4 F, new worsening abdominal, back or flank pain, lightheadedness or passing out, black or bloody stools, persistent vomiting, new chest pain or shortness of breath or other new or concerning symptoms. Prescriptions: New ondansetron 4 mg tablet,disintegrating 4 mg PO Q6H PRN (Reason: nausea and vomiting) Qty: 7 0RF No Action pravastatin [Pravachol] 40 MG tablet 40 mg PO QPM Qty: 0 0RF amlodipine 5 mg tablet 5 mg PO DAILY 0RF Label Comments: TK 1 T PO D FOR BP oseltamivir 75 mg capsule 75 mg PO DAILY 0RF Label Comments: FILLED AT PHARMACY YESTERDAY. PATIENT HAS NOT PICKED UP OR STARTED 01/31/2020 omeprazole 20 mg capsule,delayed release(DR/EC) 20 mg PO DAILY 0RF irbesartan 75 mg tablet 75 mg PO DAILY 0RF Label Comments: TK 1 T PO D FOR BP CONTROL ketoconazole 2 % cream 1 applic TOPICAL BID 0RF Rx Instructions: YELENA EXT TO FEET BID calcium carbonate [Calcium 500] 500 mg calcium (1,250 mg) Tablet,Chewable 1,500 mg PO DAILY 0RF aspirin 81 MG tablet,delayed release (DR/EC) 81 mg PO DAILY 0RF metformin 500 mg tablet 500 mg PO 4-6XD 0RF folic acid 400 mcg Tablet 0.4 mg PO DAILY 0RF Referrals: Radha Cloud ARNP [Primary Care Provider] -
--- NOTE | 2022-03-31 20:38 | DI.RAD.S_ITS ---
PROCEDURE: XR ABDOMEN MIN 2V INDICATIONS: vomiting and diarrhea TECHNIQUE: 2 views of the abdomen were acquired. COMPARISON: None. FINDINGS: Surgical changes and devices: None. Bowel: No pneumoperitoneum. There is a paucity of intraluminal gas. No abnormal gas distended bowel loops identified. Soft tissues: No suspicious abdominal calcifications. Bones: No suspicious bony abnormalities. IMPRESSION: 1. Nonspecific bowel gas pattern with a paucity of intraluminal gas. No definite evidence of bowel obstruction. Dictated by: Vinicio Li M.D. on 03/31/2022 at 22:08 Approved by: Vinicio Li M.D. on 03/31/2022 at 22:14
[2022-03-31] MEDS: ONDANSETRON 4 MG/2 ML INJ IV (21:21)
[2022-03-31] MEDS: SODIUM CHLORIDE 0.9% 1,000 ML 1000 ML IV (21:21)
[2022-03-31 21:29] LABS: Add Manual Diff / Slide Review NO; Basophils Absolute Auto 0 /uL (0-100); Basophils Percent Auto 0.4 % (0-2); Eosinophils Absolute Auto 0 /uL (0-450); Eosinophils Percent Auto 0.4 % (2-4); Hematocrit 40.2 % (36-46); Hemoglobin 13.1 g/dL (12.0-16.0); Lymphocytes Absolute Auto 700 /uL (1100-4500); Lymphocytes Percent Auto 9.3 % (25-40); Mean Corpuscular HGB Conc 32.6 % (30-36); Mean Corpuscular Hemoglobin 27.6 PG (26-34); Mean Corpuscular Volume 84.9 fL (80-100); Monocytes Absolute Auto 300 /uL (0-900); Monocytes Percent Auto 3.4 % (3-14); Neutrophils Absolute Auto 6900 /uL (1500-7000); Neutrophils Percent Auto 86.5 % (50-75); Platelet Count 272 X10^3/uL (150-400); Red Blood Cell Count 4.74 X10^6/uL (4.0-5.2); Red Cell Distribution Width 13.4 % (11.6-14.8); White Blood Cell Count 7.9 X10^3/uL (4.5-11.0)
[2022-03-31 21:36] LABS: Alanine Aminotransferase 17 IU/L (<35); Albumin 4.5 g/dL (3.5-5.0); Albumin Globulin Ratio 1.4 (1.0-2.8); Alkaline Phosphatase 67 U/L (38-126); Aspartate Aminotransferase 25 IU/L (14-36); BUN Creatinine Ratio 38.5 (6-22); Blood Urea Nitrogen 25 mg/dL (7-17); Carbon Dioxide 24 mmol/L (22-32); Chloride 102 mmol/L (98-107); Estimated Glomerular Filt Rate > 60 mL/min (>60); Globulin 3.2 g/dL (1.7-4.1); Glucose 141 mg/dL (80-110); HEMOLYSIS < 15 (0-50); Lipase 175 U/L (23-300); Potassium 3.7 mmol/L (3.4-5.1); Sodium 137 mmol/L (137-145); Total Protein 7.7 g/dL (6.3-8.2)
[2022-03-31 22:46] LABS: Appearance Urine UA CLEAR; Bilirubin Urine UA NEGATIVE (NEGATIVE); Color Urine UA YELLOW; Glucose Urine UA NEGATIVE (Negative); Ketones Urine UA 2+ (NEGATIVE); Leukocyte Esterase Urine UA NEGATIVE (NEGATIVE); Nitrite Urine UA NEGATIVE (Negative); Occult Blood Urine UA 1+ (Negative); Protein Urine UA 2+ (Negative); Specific Gravity Urine UA 1.025 (1.000-1.035); Urobilinogen Urine UA 0.2 E.U./dL (0.2)
[2022-03-31 22:48] LABS: pH Urine UA 6.5 (4.5-8.0)
[2022-03-31 22:49] LABS: COVID19 -Nasal RAPID Negative (Negative)
[2022-03-31 23:14] LABS: Bacteria Urine None Seen; Culture Indicated Urine Cult Not Indicated; RBC Urine 0-1/HPF (0-5/HPF); Squamous Epithelial Cell Urine 0-1 /HPF (0-5/HPF); WBC Urine 0-1/HPF (0-5/HPF)
[2022-03-31] MEDS: ONDANSETRON 4 MG ODT SL (23:43)
[2022-04-01] VITALS: PULSE 64; O2SAT 97
[2022-04-01 00:02] VITALS: BP 154/68; PULSE 63; O2SAT 100
== END 2022-04-01 00:14 | disposition home or self-care (01) ==
PROVIDERS: Emergency Provider Emergency Medicine; PCP Internal Medicine
DX: R19.7 Diarrhea, unspecified (principal); R11.2 Nausea with vomiting, unspecified; Z20.822 Contact with and (suspected) exposure to COVID-19
CPT/HCPCS: 36415; 74019; 80053; 81001; 83690; 85025; 87635; 96361; 96374; 99284; C9803; J2405

== ENCOUNTER → 2023-02-01 10:23 | Outpatient (CLI) | payer MEDICARE, MEDICAID, SELFPAY ==
[2020-01-31 16:23] VITALS: BMI 30.2
--- NOTE | 2023-02-01 | DI.MG.S_ITS ---
BILATERAL DIGITAL SCREENING MAMMOGRAM 3D/2D WITH CAD: 02/01/2023 CLINICAL: Routine screening. Comparison is made to exams dated: 01/28/2022 mammogram, 01/23/2021 mammogram, and 04/05/2018 mammogram - [facility]. Both breasts are heterogeneously dense, which may obscure small masses (category c / 51-75% glandular tissue). Current study was also evaluated with a Computer Aided Detection (CAD) system. No significant masses, calcifications, or other findings are seen in either breast. There has been no significant interval change. IMPRESSION: NEGATIVE There is no mammographic evidence of malignancy. A 1 year screening mammogram is recommended. Based on the Tyrer Cuzick model (a risk assessment model) the patient's lifetime risk is 5.8% and her 10 year risk is 4.8%. According to the ACR, ACS, and NCCN guidelines, an annual breast MRI exam along with mammogram is recommended if the patient's lifetime risk is 20% or greater. This exam was interpreted at Station ID: [id number]. NOTE: For mammograms, a report in lay terms will be sent to the patient. Approximately 15% of breast malignancies will not be visualized mammographically. In the management of a palpable breast mass, a negative mammogram must not discourage biopsy of a clinically suspicious lesion. Electronically Signed By: Francesco hines/dolores:02/01/2023 12:00:39 letter sent: Normal Exam ACR BI-RADS Category 1: Negative 3341F
== END ==
PROVIDERS: PCP Internal Medicine; Referring Provider Internal Medicine; Visit Provider Internal Medicine
DX: Z12.31 Encounter for screening mammogram for malignant neoplasm of breast (principal)
CPT/HCPCS: 77063; 77067

== ENCOUNTER → 2024-01-02 08:22 | Outpatient (CLI) | payer OTHER, SELFPAY ==
[2020-01-31 16:23] VITALS: BMI 30.2
[2024-01-02 09:36] LABS: Influenza A - CEPHEID Flu A NEGATIVE (NEGATIVE); Influenza B - CEPHEID Flu B NEGATIVE (NEGATIVE); Respiratory Syncytial Virus Negative (Negative)
[2024-01-02 13:57] LABS: COVID-19 CEPHEID 4-PLEX PCR Negative (Negative)
== END ==
PROVIDERS: PCP Internal Medicine; Visit Provider Nurse Practitioner Family
DX: R05.1 Acute cough (principal)
CPT/HCPCS: 0241U

== ENCOUNTER → 2024-02-08 12:12 | Outpatient (CLI) | payer OTHER, SELFPAY ==
[2020-01-31 16:23] VITALS: BMI 30.2
--- NOTE | 2024-02-08 12:12 | DI.MG.S_ITS ---
BILATERAL DIGITAL SCREENING MAMMOGRAM 3D/2D WITH CAD: 02/08/2024 CLINICAL: Routine screening. Comparison is made to exams dated: 02/01/2023 mammogram, 01/28/2022 mammogram, and 01/23/2021 mammogram - [facility]. Both breasts are heterogeneously dense, which may obscure small masses (category c / 51-75% glandular tissue). Current study was also evaluated with a Computer Aided Detection (CAD) system. There are benign vascular calcifications in the right breast. No significant masses, calcifications, or other findings are seen in either breast. There has been no significant interval change. IMPRESSION: BENIGN There is no mammographic evidence of malignancy. A 1 year screening mammogram is recommended. Based on the Tyrer Cuzick model (a risk assessment model) the patient's lifetime risk is 5.4% and her 10 year risk is 4.9%. According to the ACR, ACS, and NCCN guidelines, an annual breast MRI exam along with mammogram is recommended if the patient's lifetime risk is 20% or greater. This exam was interpreted at Station ID: [id number]. NOTE: For mammograms, a report in lay terms will be sent to the patient. Approximately 15% of breast malignancies will not be visualized mammographically. In the management of a palpable breast mass, a negative mammogram must not discourage biopsy of a clinically suspicious lesion. Electronically Signed By: Shiva benitez/dolores:02/08/2024 13:24:34 letter sent: Normal Exam ACR BI-RADS Category 2: Benign Finding(s) 3342F
== END ==
PROVIDERS: PCP Internal Medicine; Referring Provider Internal Medicine; Visit Provider Internal Medicine
DX: Z12.31 Encounter for screening mammogram for malignant neoplasm of breast (principal); R92.333 Mammographic heterogeneous density, bilateral breasts
CPT/HCPCS: 77063; 77067

== ENCOUNTER → 2024-07-06 09:45 | Outpatient (CLI) | payer OTHER, SELFPAY ==
[2020-01-31 16:23] VITALS: BMI 30.2
--- NOTE | 2024-07-06 09:46 | DI.RAD.S_ITS ---
PROCEDURE: XR DEXA AXIAL SKELETON INDICATIONS: MENOPAUSE COMPARISON: [facility], , XR DEXA AXIAL SKELETON, 12/22/2021, 11:58. FINDINGS: Lumbar Spine: Bone mineral density 0.900 g/cm2, T score -0.7, -0.6 Left Hip: Bone mineral density 0.720 g/cm2, T score -1.8 Left Femoral Neck: Bone mineral density is 0.620 g/cm2, T score -2.1 Right Hip: Bone mineral density is 0.627 g/cm2, T score -2.6 Right Femoral Neck: Bone mineral density is 0.599 g/cm2, T score -2.3 Fracture Risk Calculation (when applicable): 10-year fracture risk of a major osteoporotic fracture 14% and of a hip fracture 3.9% (T score greater or equal to -1.0 to: NORMAL) (T score from -1.1 to -2.4: OSTEOPENIA) (T score less than or equal to -2.5: OSTEOPOROSIS) IMPRESSION: There is osteoporosis of the right hip. There is osteopenia of the left hip, left femoral neck and right femoral neck. The lumbar spine is normal. Follow-up guidelines as follows: Osteoporosis: Consider a repeat DEXA and Vertebral Fracture Assessment (VFA) exam in 2 years or sooner if medically necessary, to reassess this patient's status. Osteopenia: Consider a repeat DEXA in 2-3 years to reassess this patient's status, or if there is a new clinical indication. Normal: Consider a repeat DEXA in 5 years or sooner, or if there is a new clinical indication. All treatment decisions require clinical judgment and consideration of individual patient factors, including patient preferences, comorbidities, previous drug use, risk factors not captured in the FRAX model (e.g., frailty, falls, vitamin D deficiency, increased bone turnover, interval significant decline in bone density ) and possible under- or over-estimation of fracture risk by FRAX. In addition, the NOF Guide recommends that FDA-approved medical therapies be considered in postmenopausal women and men age >= 50 years with a: * Hip or vertebral (clinical or morphometric) fracture * T-score of <=-2.5 at the spine or hip * Ten-year fracture probability by FRAX of >= 3% for hip fracture or >=20% for major osteoporotic fracture. People with diagnosed cases of osteoporosis or at high risk for fracture should have regular bone mineral density tests. For patients eligible for Medicare, routine testing is allowed once every 2 years. The testing frequency can be increased to one year for patients who have rapidly progressing disease, those who are receiving or discontinuing medical therapy to restore bone mass, or have additional risk factors. Dictated by: Hammad Bonilla M.D. on 07/06/2024 at 14:49 Approved by: Hammad Bonilla M.D. on 07/06/2024 at 14:53
== END ==
LOC: RAD 09:46
PROVIDERS: PCP Internal Medicine; Referring Provider Internal Medicine; Visit Provider Internal Medicine
DX: Z78.0 Asymptomatic menopausal state (principal); M81.0 Age-related osteoporosis without current pathological fracture
CPT/HCPCS: 77080

== ENCOUNTER → 2025-02-22 09:42 | Outpatient (CLI) | payer OTHER, SELFPAY ==
[2020-01-31 16:23] VITALS: BMI 30.2
--- NOTE | 2025-02-22 09:43 | DI.MG.S_ITS ---
MM screening mammo BI: 02/22/2025. BI-RADS: 1 CLINICAL: 75-year old female for bilateral screening mammogram. Tyrer-Cuzick lifetime risk of 6.0%. No personal or first-degree family history of breast cancer. PRIOR EXAMS 02/08/2024, 02/01/2023, 01/28/2022, 01/23/2021, 04/05/2018, 04/04/2017, 04/02/2016, 03/26/2015. MAMMOGRAPHY TECHNIQUE: 2D and 3D (tomosynthesis) digital mammographic views obtained, with additional images as needed for full coverage. Current study was also evaluated with a Computer Aided Detection (CAD) system. DENSITY C. The breasts are heterogeneously dense, which may obscure small masses. MAMMOGRAPHY FINDINGS Bilateral: No suspicious mass, asymmetry, microcalcification, or other abnormality seen. No significant change from comparison. IMPRESSION: * No evidence of malignancy. RECOMMENDATIONS Bilateral * Annual screening mammography. OVERALL ASSESSMENT CATEGORY BI-RADS-1: Negative. The [employer] recommends annual screening mammography beginning at age 40 for women with average risk of breast cancer. ELECTRONICALLY SIGNED: Tameka Crane M.D. on 02/22/2025 at 02:45:58 PM PT Interpreting Station ID: [id number]
== END ==
PROVIDERS: PCP Registered Nurse; Referring Provider Registered Nurse; Visit Provider Registered Nurse
DX: Z12.31 Encounter for screening mammogram for malignant neoplasm of breast (principal); R92.333 Mammographic heterogeneous density, bilateral breasts
CPT/HCPCS: 77063; 77067